=== PATIENT | female | born 1955 | race Caucasian/White ===

== ENCOUNTER → 2018-06-10 16:24 | Outpatient (CLI) | payer BC, SELFPAY ==
--- NOTE | 2018-06-10 16:30 | BI_ITS ---
MAMMOGRAPHY - BILATERAL SCREENING REASON FOR EXAM: Female, 63 years old. Routine annual screening examination. PERTINENT HISTORY: Non-contributory. Remote right stereotactic breast biopsies. TECHNIQUE: Digital bilateral breast jennifer (3D mammographic acquisition) in the CC and MLO projections. 2-D mediolateral oblique (MLO) and craniocaudad (CC) views of both breasts were obtained. CAD: Full Field Digital Mammography with Computer Added Detection was performed. COMPARISON: Comparison is made with prior study dated April 23, 2017 and April 16, 2016. FINDINGS: Breast Composition: There are scattered areas of fibroglandular density. Stable 8.5 mm well-defined nodular density in the deep mid medial aspect of the right breast. A tissue clip marker is seen within the nodular density in the central slightly lateral portion of the right breast. No other significant abnormalities are identified. There has been no significant change since the prior study. BI/SCREENING MAMM (CAD), BILAT IMPRESSION: Stable bilateral screening mammogram. Ultrasound of the 8.5 mm nodule in the deep mid medial portion of the right breast is recommended. ASSESSMENT CATEGORY: BIRADS Category 0: Incomplete. Need additional imaging evaluation. A letter regarding these results will be sent to the patient by the facility within 30 days. Approximately 10% of breast cancers are not detected by mammography. A normal mammogram should not delay biopsy of a clinically suspicious abnormality. [id number] Electronically Signed: Sb Medina MD at 8:42 EDT Tel [phone], Service support ,
== END ==
PROVIDERS: Family Provider Internal Medicine; PCP Internal Medicine; Visit Provider Internal Medicine
DX: Z12.31 Encounter for screening mammogram for malignant neoplasm of breast (principal); N63.10 Unspecified lump in the right breast, unspecified quadrant
CPT/HCPCS: 77063; 77067

== ENCOUNTER → 2018-06-22 12:24 | Outpatient (CLI) | payer BC, SELFPAY ==
--- NOTE | 2018-06-22 12:29 | US_ITS ---
STUDY: ULTRASOUND BREAST - RIGHT REASON FOR EXAM: Female, 63 years old. Abnormal screening mammogram. TECHNIQUE: Axial and longitudinal images of the RIGHT breast were performed with a high resolution ultrasound transducer. COMPARISON: Comparison is made with prior mammogram dated June 10, 2018. FINDINGS: RIGHT Breast: There is evidence of a dilated subareolar ducts. No solid or cystic mass lesion is seen. Routine mammographic follow-up is recommended. US/Breast Limited Unilateral IMPRESSION: Dilated subareolar ducts. ASSESSMENT CATEGORY: BIRADS Category 2: Benign. A letter regarding these results will be sent to the patient by the facility within 30 days. Electronically Signed: Sb Medina MD at 13:54 EDT Tel [phone], Service support ,
== END ==
PROVIDERS: Family Provider Internal Medicine; PCP Internal Medicine; Visit Provider Internal Medicine
DX: R92.8 Other abnormal and inconclusive findings on diagnostic imaging of breast (principal)
CPT/HCPCS: 76642

== ENCOUNTER 2018-06-27 17:07 | Inpatient (IN) | payer BC, SELFPAY ==
[2018-06-27 17:08] VITALS: BP 139/56; PULSE 81; RESP 24; TEMP 36; O2SAT 99; BMI 29.6
[2018-06-27 17:41] LABS: Absolute Lymphocyte Count 2.86 X10^3/ul (0.83-4.51); Absolute Neutrophil Count 9.7 X10^3/uL (2.0-7.7); Basophil# 0.03 X10^3/uL; Basophil% 0.2 % (0-1); Eosinophil# 0.16 X10^3/uL; Eosinophils% 1.2 % (0-5); Hematocrit 39.4 % (37-47); Hemoglobin 13.1 g/dl (12.0-15.0); Lymphocyte # 2.86 X10^3/ul (4.0); Lymphocyte % 21.4 % (19-41); Mean Corp Hgb Conc 33.2 g/gl (32-36); Mean Corpuscular Volume 90.2 fL (81-99); Monocyte# 0.59 X10^3/uL; Monocyte% 4.4 % (0-10); Neutrophil % 72.4 % (47-70); Platelet Count 240 K/mm3 (150-450); RBC Distribution Width CV 14.3 % (11.6-14.6); Red Blood Count 4.37 M/mm3 (4.2-5.4); White Blood Count 13.4 K/mm3 (4.4-11.0)
[2018-06-27 17:42] LABS: POSITIVE COUNT NO; POSITIVE DIFFERENTIAL NO; POSITIVE MORPHOLOGY NO
[2018-06-27 17:51] LABS: Anion Gap 11 (5-15); BUN 22 mg/dL (7-18); BUN/Creat Ratio 20.8 RATIO (10-20); Calcium,Total 9.3 mg/dL (8.5-10.1); Chloride 106 mmol/L (98-107); Creatinine, Serum 1.06 mg/dL (0.55-1.02); EST Glomerular Filtration Rate 55 mL/min (>60); Est Glom Filt Rate - Afr Amer 67 mL/min (>60); Estimated Creatinine Clearance 54.09 ml/min; Glucose 174 mg/dL (74-106); Potassium 3.8 mmol/L (3.5-5.1); Sodium Level 143 mmol/L (136-145)
[2018-06-27] MEDS: Morphine 4 MG/ML Syringe IV (17:58)
[2018-06-27] MEDS: 0.9% Normal Saline 1,000 ML 150 ML IV ×2 (17:58→20:58)
[2018-06-27] MEDS: Ondansetron ODT 4 MG Tablet PO (17:58)
[2018-06-27 18:13] LABS: CPK Total, Creatine Kinase 145 U/L (26-192)
--- NOTE | 2018-06-27 18:20 | RAD_ITS ---
STUDY: X-RAY - LEFT FEMUR REASON FOR STUDY: Female, 63 years old. Trauma TECHNIQUE: Radiological exam, femur, minimum 2 views COMPARISON: None. FINDINGS: Normal visualized soft tissue structure. There is no evidence of fracture or dislocation. There are mild degenerative changes of the left knee joint. There is a crescentic calcification adjacent to the medial femoral epicondyle consistent with a David-Stieda calcification. RAD/Femur Min 2 Views IMPRESSION: 1. There is no evidence of left femoral fracture or dislocation. 2. There are degenerative changes of the left knee joint. 3. Crescentic calcification adjacent to the medial femoral epicondyles consistent with a David-Stieda calcification. . Electronically Signed: Roney Garrido MD at 19:10 EDT , Service support ,
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
[2018-06-27 19:35] VITALS: BP 130/77; PULSE 79; RESP 14; O2SAT 98
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
[2018-06-27] MEDS: Ketorolac 30 MG/ML Syringe IV (19:42)
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
[2018-06-27 20:09] VITALS: BMI 30.9
[2018-06-27 20:18] VITALS: BP 145/77; PULSE 89; RESP 20; TEMP 36.4; O2SAT 96
[2018-06-27 20:53] LABS: Anion Gap 10 (5-15); BUN 21 mg/dL (7-18); BUN/Creat Ratio 23.4 RATIO (10-20); Calcium,Total 8.7 mg/dL (8.5-10.1); Chloride 108 mmol/L (98-107); EST Glomerular Filtration Rate 67 mL/min (>60); Est Glom Filt Rate - Afr Amer 81 mL/min (>60); Glucose 137 mg/dL (74-106); Magnesium 1.9 mg/dL (1.6-2.6); Potassium 3.9 mmol/L (3.5-5.1); Sodium Level 144 mmol/L (136-145)
[2018-06-27 20:54] LABS: CPK Total, Creatine Kinase 212 U/L (26-192)
[2018-06-27] MEDS: 0.9% Normal Saline 1,000 ML 999 ML IV (20:57)
[2018-06-27 21:00] LABS: Hemoglobin A1c 5.8 % (4.2-6.3)
[2018-06-28] VITALS (28 sets, daily range): BP systolic 98–134; BP diastolic 57–86; PULSE 71–87; RESP 14–29; TEMP 36.1–36.8; O2SAT 91–100
[2018-06-28 00:43] LABS: Anion Gap 6 (5-15); BUN 18 mg/dL (7-18); BUN/Creat Ratio 20.8 RATIO (10-20); Calcium,Total 8.2 mg/dL (8.5-10.1); Chloride 110 mmol/L (98-107); Creatinine, Serum 0.86 mg/dL (0.55-1.02); EST Glomerular Filtration Rate 70 mL/min (>60); Est Glom Filt Rate - Afr Amer 85 mL/min (>60); Estimated Creatinine Clearance 66.67 ml/min; Glucose 107 mg/dL (74-106); Potassium 4.3 mmol/L (3.5-5.1); Sodium Level 141 mmol/L (136-145)
--- NOTE | 2018-06-28 02:15 | NURSING ---
Called lab. Order for 0142 CPK has been re entered so they can run results per Dr. Mendez.
[2018-06-28] MEDS: 0.9% Normal Saline 1,000 ML 150 ML IV ×2 (02:23→09:20)
[2018-06-28 02:48] LABS: CPK Total, Creatine Kinase 279 U/L (26-192)
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
[2018-06-28 03:42] LABS: Absolute Lymphocyte Count 4.46 X10^3/ul (0.83-4.51); Absolute Neutrophil Count 5.5 X10^3/uL (2.0-7.7); Basophil# 0.02 X10^3/uL; Basophil% 0.2 % (0-1); Eosinophil# 0.17 X10^3/uL; Eosinophils% 1.5 % (0-5); Hematocrit 32.1 % (37-47); Hemoglobin 10.4 g/dl (12.0-15.0); Lymphocyte # 4.46 X10^3/ul (4.0); Lymphocyte % 40.6 % (19-41); Mean Corp Hgb Conc 32.4 g/gl (32-36); Mean Corpuscular Hgb 29.7 pg (27.0-32.0); Mean Corpuscular Volume 91.7 fL (81-99); Mean Platelet Vol. 11.2 fl (6.2-12.0); Monocyte# 0.87 X10^3/uL; Monocyte% 7.9 % (0-10); Neutrophil # 5.46 X10^3/uL (2.7-7.7); Neutrophil % 49.7 % (47-70); Platelet Count 221 K/mm3 (150-450); RBC Distribution Width CV 14.5 % (11.6-14.6); RBC Distribution Width SD 47.2 fl (35.1-43.9)
[2018-06-28 03:44] LABS: POSITIVE COUNT NO; POSITIVE DIFFERENTIAL NO; POSITIVE MORPHOLOGY NO
--- NOTE | 2018-06-28 03:44 | CCHN_ITS ---
Hospitalist Note PENOLOGY PROFESSOR Called (3:05 am) secondary to patient nearly passing out while in the restroom. She per RN became diaphoretic, pale and very lethargic w/ low blood pressure. She was transitioned from the restroom to the bed. She became more alert. NS 1L wide open initiated. Repeat VS improved, stable BP. LLE now more edematous, remains TTP, not markedly tense with palpation or PROM; however, remains severely TTP, near fluctuant sensation w/ palpation. Dr. Devlin called immediately and updated and requested to evaluate patient. Following discussions she requested CT LLE without contrast which was performed and preliminary upon visualization concerning for bleeding with pending radiology and orthopedic surgery read (Dr. Devlin updated). Repeat labs returned w/ Hgb 13.1-->10.4 w/ require for 2u T+C ordered, coags normal, BMP w/ K 3.9, glucose 129, TCK 279, trop < 0.015. Patient following CT LLE transitioned to ICU for close monitoring pending primary service assessment for possible surgical intervention needs. Dr. Perez ICU updated about patient transition to the ICU and current status. Physical Examination: General: awake, alert, oriented to current events, place, date and cooperative, diaphoretic and pale, seated upright initially in wheelchair and then transitioned to the bed in no apparent distress. Skin: pale color initially, improved, mildly increased bruising to BL upper anterior thigh region; however, LLE now more edematous, remains TTP, not markedly tense with palpation or PROM; however, remains severely TTP, near fluctuant sensation w/ palpation HEENT: AT/NC, mildly dry MM. Lungs: CTA bilaterally, moderate effort, mild decrease BL bases, no rales, ronchi or wheezing. Heart: Regular rate and rhythm; no gallop, rub audible. Abdomen: soft, NTTP, ND. Extremities: no cyanosis, clubbing, see skin, distal pulses remain intact. Neurological: awake, alert, oriented to current events, place, date and cooperative, seated upright initially in wheelchair and then transitioned to the bed in no apparent distress; cognitive function improved, more baseline intact; pupils equally reactive to light and accomodation; cranial nerves II- XII grossly normal, moving all 4 extremities but still severely limited secondary to LLE pain, recent near syncopal event/vasovagal. Psychiatric: affect appears fatigued, flat, no acute evidence of depressive or anxiety feelings. Prolonged Care Timeline: Additional Care above initial evaluation time 95 minutes Codin and [id number] x 1 Code Visit Procedures: Other Procedure - See Report - [id number] and [id number] x 1
[2018-06-28 03:45] LABS: International Normalized Ratio 1.1; Prothrombin Time (Protime)PT. 14.4 SECONDS (11.7-14.9)
[2018-06-28 03:51] LABS: Bedside Glucose 138 mg/dL (70-110)
[2018-06-28 03:52] LABS: Anion Gap 11 (5-15); BUN 18 mg/dL (7-18); BUN/Creat Ratio 20.5 RATIO (10-20); Chloride 110 mmol/L (98-107); Creatinine, Serum 0.88 mg/dL (0.55-1.02); EST Glomerular Filtration Rate 69 mL/min (>60); Est Glom Filt Rate - Afr Amer 84 mL/min (>60); Estimated Creatinine Clearance 65.15 ml/min; Glucose 129 mg/dL (74-106); Potassium 3.9 mmol/L (3.5-5.1); Sodium Level 143 mmol/L (136-145)
--- NOTE | 2018-06-28 04:36 | PCM.HOSP.N ---
Hospitalist Note SURVEY SUPERVISOR Called (3:05 am) secondary to patient nearly passing out while in the restroom. She per RN became diaphoretic, pale and very lethargic w/ low blood pressure. She was transitioned from the restroom to the bed. She became more alert. NS 1L wide open initiated. Repeat VS improved, stable BP. LLE now more edematous, remains TTP, not markedly tense with palpation or PROM; however, remains severely TTP, near fluctuant sensation w/ palpation. Dr. Devlin called immediately and updated and requested to evaluate patient. Following discussions she requested CT LLE without contrast which was performed and preliminary upon visualization concerning for bleeding with pending radiology and orthopedic surgery read (Dr. Devlin updated). Repeat labs returned w/ Hgb 13.1-->10.4 w/ require for 2u T+C ordered, coags normal, BMP w/ K 3.9, glucose 129, TCK 279, trop < 0.015. Patient following CT LLE transitioned to ICU for close monitoring pending primary service assessment for possible surgical intervention needs. Dr. Perez ICU updated about patient transition to the ICU and current status. Physical Examination: General: awake, alert, oriented to current events, place, date and cooperative, diaphoretic and pale, seated upright initially in wheelchair and then transitioned to the bed in no apparent distress. Skin: pale color initially, improved, mildly increased bruising to BL upper anterior thigh region; however, LLE now more edematous, remains TTP, not markedly tense with palpation or PROM; however, remains severely TTP, near fluctuant sensation w/ palpation HEENT: AT/NC, mildly dry MM. Lungs: CTA bilaterally, moderate effort, mild decrease BL bases, no rales, ronchi or wheezing. Heart: Regular rate and rhythm; no gallop, rub audible. Abdomen: soft, NTTP, ND. Extremities: no cyanosis, clubbing, see skin, distal pulses remain intact. Neurological: awake, alert, oriented to current events, place, date and cooperative, seated upright initially in wheelchair and then transitioned to the bed in no apparent distress; cognitive function improved, more baseline intact; pupils equally reactive to light and accomodation; cranial nerves II-XII grossly normal, moving all 4 extremities but still severely limited secondary to LLE pain, recent near syncopal event/vasovagal. Psychiatric: affect appears fatigued, flat, no acute evidence of depressive or anxiety feelings. Prolonged Care Timeline: Additional Care above initial evaluation time 95 minutes Codin and [id number] x 1 Code Visit Procedures: Other Procedure - See Report - [id number] and [id number] x 1
--- NOTE | 2018-06-28 04:42 | NURSING ---
Addendum entered by Ina Montez 06/28/18 04:48: See [facility] PRESIDENT documentation Original Note: Addendum entered by Ina Montez 06/28/18 04:42: Initially occurred at 0305 at 0309 Code team arrived, VS obtained, 78/44, hr 72, RR 14, SpO2 91% RA. Pt alert but still pale and diaphoretic, then appeared to vasovagal again. Pulse present. Ice to neck, waking up 0313 BGT 138 0315 back to bed via wc, pt alert, states feel better [address] per nursing supervisor polishing [employer] operations engineer in charge nurse, then will go to ICU. Original Note: Walked pt to bathroom after completing vs and neuro checks of left LE, edema increased, firmer to touch. Pt c/o increased pain upon standing, states was only a 2/10 in bed but when up felt severe. walked to bathroom with sba. Voided and upon standing pt c/o increased pain, became clammy, cool, stopped talking. Assisted pt back to seated position on toilet. Pt became diaphoretic, pale, and eyes rolled back, became unresponsive. Called for assistance, applied cold rag to forehead, pt moaning a little but not arousable, did not appear to be breathing, called code blue. Within a few seconds pt waking up.
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
[2018-06-28 06:21] LABS: M R Staph aureus DNA By PCR Negative (Negative); Probe Check PASS; Specimen Processing Control PASS
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
[2018-06-28 07:21] LABS: Anion Gap 8 (5-15); BUN 17 mg/dL (7-18); Calcium,Total 7.7 mg/dL (8.5-10.1); Chloride 109 mmol/L (98-107); Creatinine, Serum 0.85 mg/dL (0.55-1.02); EST Glomerular Filtration Rate 71 mL/min (>60); Est Glom Filt Rate - Afr Amer 86 mL/min (>60); Estimated Creatinine Clearance 67.45 ml/min; Glucose 121 mg/dL (74-106); Sodium Level 143 mmol/L (136-145)
[2018-06-28 08:05] LABS: Absolute Lymphocyte Count 1.97 X10^3/ul (0.83-4.51); Absolute Neutrophil Count 4.3 X10^3/uL (2.0-7.7); Basophil# 0.02 X10^3/uL; Basophil% 0.3 % (0-1); Eosinophil# 0.07 X10^3/uL; Hematocrit 30.4 % (37-47); Hemoglobin 9.7 g/dl (12.0-15.0); Lymphocyte # 1.97 X10^3/ul (4.0); Lymphocyte % 29.1 % (19-41); Mean Corp Hgb Conc 31.9 g/gl (32-36); Mean Corpuscular Volume 90.7 fL (81-99); Mean Platelet Vol. 11.2 fl (6.2-12.0); Monocyte# 0.39 X10^3/uL; Monocyte% 5.8 % (0-10); Neutrophil # 4.31 X10^3/uL (2.7-7.7); Neutrophil % 63.8 % (47-70); POSITIVE COUNT NO; POSITIVE DIFFERENTIAL NO; POSITIVE MORPHOLOGY NO; Platelet Count 197 K/mm3 (150-450); RBC Distribution Width CV 14.5 % (11.6-14.6); RBC Distribution Width SD 48.3 fl (35.1-43.9); Red Blood Count 3.35 M/mm3 (4.2-5.4); White Blood Count 6.8 K/mm3 (4.4-11.0)
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
[2018-06-28] MEDS: Vitamin B Comp W-C Capsule 1 CAP PO (09:20)
[2018-06-28 11:02] LABS: Hematocrit 28.1 % (37-47)
[2018-06-28 15:00] LABS: Hematocrit 29.1 % (37-47); Hemoglobin 9.5 g/dl (12.0-15.0)
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
[2018-06-29] VITALS (10 sets, daily range): BP systolic 102–129; BP diastolic 64–73; PULSE 64–93; RESP 14–22; TEMP 36.6–37.1; O2SAT 92–99
--- NOTE | 2018-06-29 | NURSING ---
report called to ALYSSA Eckert RN at this time.
[2018-06-29 05:09] LABS: Absolute Lymphocyte Count 2.86 X10^3/ul (0.83-4.51); Absolute Neutrophil Count 3.5 X10^3/uL (2.0-7.7); Basophil# 0.02 X10^3/uL; Basophil% 0.3 % (0-1); Eosinophil# 0.19 X10^3/uL; Eosinophils% 2.7 % (0-5); Hematocrit 26.6 % (37-47); Hemoglobin 8.4 g/dl (12.0-15.0); Lymphocyte # 2.86 X10^3/ul (4.0); Lymphocyte % 40.2 % (19-41); Mean Corp Hgb Conc 31.6 g/gl (32-36); Mean Corpuscular Volume 91.7 fL (81-99); Mean Platelet Vol. 10.8 fl (6.2-12.0); Monocyte# 0.53 X10^3/uL; Monocyte% 7.4 % (0-10); Neutrophil # 3.51 X10^3/uL (2.7-7.7); Neutrophil % 49.3 % (47-70); Platelet Count 182 K/mm3 (150-450); RBC Distribution Width CV 14.2 % (11.6-14.6); RBC Distribution Width SD 46.2 fl (35.1-43.9); White Blood Count 7.1 K/mm3 (4.4-11.0)
[2018-06-29 05:37] LABS: POSITIVE COUNT NO; POSITIVE DIFFERENTIAL NO; POSITIVE MORPHOLOGY NO
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
[2018-06-29] MEDS: Acetaminophen 325 MG Tablet 650 MG PO (08:54)
[2018-06-29] MEDS: Vitamin B Comp W-C Capsule 1 CAP PO (08:55)
--- NOTE | 2018-06-29 09:30 | CASEMGMT ---
Face to Face with patient for initial transition planning/care coordination assessment. JAXON DE LEON introduced self and role at [facility], pt voices understanding and consents to assessment at this time. Pt is sitting up in chair in no distress at this time. Pt is A/O x4 at this time and answers all questions appropriately at this time. Care providers, pharmacy, and demographics verified. See attached link. Pt voices no further concerns/needs at this time. Advised pt to ask for CM if any further questions/concerns/needs arise, voices understanding. PLAN: [place] JAXON DE LEON
--- NOTE | 2018-06-29 11:28 | PCM.DC ---
- Discharge Diagnoses Current Active Problems: Current Active and Chronic Problems (Last Updated 03/06/18 @ 16:06 by Hilda Link) HLD (hyperlipidemia) (Chronic) Crushing injury of left lower extremity (Acute) Overweight (BMI 25.0-29.9) (Chronic) Hyperglycemia (Acute) You will use the following diet at home:: No restrictions Your food should be the consistency of: Regular Your liquids should be the consistency of: Regular/Thin Discharge Activity: Return to Normal Activity, Use Walker Weight Bearing Status: Weight bearing as tolerated Allergies/Adverse Reactions: Allergies amoxicillin [From Augmentin] Adverse Reaction (Mild, Verified 03/06/18 16:15) vomiting clavulanic acid [From Augmentin] Adverse Reaction (Mild, Verified 03/06/18 16:15) vomiting Sulfa (Sulfonamide Antibiotics) Adverse Reaction (Mild, Verified 03/06/18 16:15) vomiting black pepper Adverse Reaction (Verified 06/27/18 20:23) kuo lips orange dye Allergy (Mild, Uncoded 06/27/18 20:22) SOB, hives dairy Adverse Reaction (Uncoded 06/27/18 20:23) lactose intolerance Medications to take at Discharge multivitamin tablet 1 tab PO QDAY 03/06/18 Primary Care Physician: Bettye Le MD [STAFF PHYSICIAN] - Please follow up with your Primary Care Physician in: in 2 weeks Test Results: Test results from this visit will be discussed in further detail at your follow-up appointment, if applicable. Please Follow Up With: Dayan Devlin DO When: this -office will contact
--- NOTE | 2018-06-29 11:32 | DCINST_ITS ---
- Discharge Diagnoses Current Active Problems: Current Active and Chronic Problems (Last Updated 03/06/18 @ 16:06 by Hilda Link) HLD (hyperlipidemia) (Chronic) Crushing injury of left lower extremity (Acute) Overweight (BMI 25.0-29.9) (Chronic) Hyperglycemia (Acute) You will use the following diet at home:: No restrictions Your food should be the consistency of: Regular Your liquids should be the consistency of: Regular/Thin Discharge Activity: Return to Normal Activity, Use Walker Weight Bearing Status: Weight bearing as tolerated Allergies/Adverse Reactions: Allergies amoxicillin [From Augmentin] Adverse Reaction (Mild, Verified 03/06/18 16:15) vomiting clavulanic acid [From Augmentin] Adverse Reaction (Mild, Verified 03/06/18 16:15 ) vomiting Sulfa (Sulfonamide Antibiotics) Adverse Reaction (Mild, Verified 03/06/18 16:15) vomiting black pepper Adverse Reaction (Verified 06/27/18 20:23) kuo lips orange dye Allergy (Mild, Uncoded 06/27/18 20:22) SOB, hives dairy Adverse Reaction (Uncoded 06/27/18 20:23) lactose intolerance Medications to take at Discharge multivitamin tablet 1 tab PO QDAY 03/06/18 Primary Care Physician: Bettye Le MD [STAFF PHYSICIAN] - Please follow up with your Primary Care Physician in: in 2 weeks Test Results: Test results from this visit will be discussed in further detail at your follow- up appointment, if applicable. Please Follow Up With: Dayan Devlin DO When: this -office will contact
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
== END 2018-06-29 15:45 | disposition home or self-care (01) | DRG 914 ==
LOC: ED 18:55 → MS3 19:46 → ICU 06-28 03:52 → PCU 06-29 00:41
PROVIDERS: Family Medicine; Internal Medicine Critical Care Medicine; Admitting Provider Orthopaedic Surgery; Emergency Provider Emergency Medicine; Family Provider Internal Medicine; PCP Internal Medicine; Visit Provider Hospitalist
DX: S77.12XA Crushing injury of left thigh, initial encounter (principal); D62 Acute posthemorrhagic anemia; S70.12XA Contusion of left thigh, initial encounter; W23.0XXA Caught, crushed, jammed, or pinched between moving objects, initial encounter; R73.9 Hyperglycemia, unspecified; E78.5 Hyperlipidemia, unspecified; Z68.30 Body mass index [BMI] 30.0-30.9, adult; E66.3 Overweight
CPT/HCPCS: 36415; 73552; 73700; 80048; 82550; 82962; 83036; 83735; 84484; 85014; 85018; 85025; 85610; 86850; 86900; 86920; 87641; 97162; 97166; 97535; 99282; J7030; J2405

== ENCOUNTER → 2018-07-02 10:19 | Outpatient (CLI) | payer BC, SELFPAY ==
[2018-07-02 11:09] LABS: Absolute Lymphocyte Count 2.11 X10^3/ul (0.83-4.51); Absolute Neutrophil Count 5.2 X10^3/uL (2.0-7.7); Basophil# 0.04 X10^3/uL; Basophil% 0.5 % (0-1); Eosinophil# 0.17 X10^3/uL; Eosinophils% 2.1 % (0-5); Hematocrit 29.8 % (37-47); Hemoglobin 9.5 g/dl (12.0-15.0); Lymphocyte # 2.11 X10^3/ul (4.0); Lymphocyte % 26.3 % (19-41); Mean Corp Hgb Conc 31.9 g/gl (32-36); Mean Corpuscular Hgb 29.1 pg (27.0-32.0); Mean Corpuscular Volume 91.4 fL (81-99); Mean Platelet Vol. 11.1 fl (6.2-12.0); Monocyte# 0.52 X10^3/uL; Monocyte% 6.5 % (0-10); Neutrophil # 5.15 X10^3/uL (2.7-7.7); Neutrophil % 64.2 % (47-70); Platelet Count 308 K/mm3 (150-450); RBC Distribution Width CV 14.5 % (11.6-14.6); RBC Distribution Width SD 46.1 fl (35.1-43.9); Red Blood Count 3.26 M/mm3 (4.2-5.4)
[2018-07-02 11:14] LABS: POSITIVE COUNT NO; POSITIVE DIFFERENTIAL NO; POSITIVE MORPHOLOGY NO
[2018-07-02 11:44] LABS: ALB/GLOB Ratio 0.9 RATIO (0.9-2.4); AST(SGOT) 32 U/L (15-37); Alanine Aminotransfer ALT/SGPT 35 U/L (13-56); Albumin, Serum 3.6 g/dL (3.2-5.0); Alkaline Phosphatase 83 U/L (45-117); Anion Gap 10 (5-15); BUN 18 mg/dL (7-18); BUN/Creat Ratio 20.8 RATIO (10-20); Calcium,Total 8.8 mg/dL (8.5-10.1); Chloride 104 mmol/L (98-107); Creatinine, Serum 0.87 mg/dL (0.55-1.02); EST Glomerular Filtration Rate 70 mL/min (>60); Est Glom Filt Rate - Afr Amer 85 mL/min (>60); Globulin 3.8 g/dL (2.2-4.2); Glucose 119 mg/dL (74-106); Potassium 3.9 mmol/L (3.5-5.1); Protein, Total 7.4 g/dL (6.4-8.2); Sodium Level 138 mmol/L (136-145)
== END ==
PROVIDERS: Physician Assistant; Family Provider Internal Medicine; PCP Internal Medicine; Visit Provider Orthopaedic Surgery
DX: D64.9 Anemia, unspecified (principal); R73.09 Other abnormal glucose
CPT/HCPCS: 36415; 80053; 85025

== ENCOUNTER → 2018-07-29 10:40 | Outpatient (CLI) | payer BC, SELFPAY ==
[2018-07-29 11:31] LABS: Hematocrit 39.1 % (37-47); Hemoglobin 12.5 g/dl (12.0-15.0); Mean Corpuscular Hgb 29.1 pg (27.0-32.0); Mean Corpuscular Volume 91.1 fL (81-99); Mean Platelet Vol. 11.1 fl (6.2-12.0); Platelet Count 335 K/mm3 (150-450); RBC Distribution Width SD 49.7 fl (35.1-43.9); Red Blood Count 4.29 M/mm3 (4.2-5.4); White Blood Count 6.7 K/mm3 (4.4-11.0)
[2018-07-29 11:33] LABS: Scan Indicated on CBC? Y/N NO
== END ==
PROVIDERS: Family Provider Internal Medicine; PCP Internal Medicine; Visit Provider Physician Assistant
DX: D64.9 Anemia, unspecified (principal)
CPT/HCPCS: 36415; 85027

== ENCOUNTER 2018-08-27 13:00 | Outpatient (RCR) | payer BC, SELFPAY ==
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
--- NOTE | 2019-01-21 15:11 | HP.PTDCSUM ---
HP - PT D/C Summary It has been my pleasure to treat KEYA SHEIKH under orders from Dayan Devlin DO, for the diagnosis of LLE hematoma, edema control for a total of 12 visit(s). Discharge Date: 08/27/18 Please see the following information for a summary of their discharge status. - Subjective Subjective: Pt. has made some gains in edema, is not less brawny feeling and has decreased in girth. Pt. is back to full mobility and work, but is not back to playing recreational sports. - Pain L LE Pain Intensity (Out of 10): 0 - Overall Improvement % Improvement: 50 - Objective Objective/Function: Pt. tolerated all PT without adverse reaction. Pt. has been making slow porgress, but is progressing. Pt. reports being ~50% better overall. Pt. plans to get second opinion on her thigh. Pt. will be DC from PT at this point in time. - Goals Goal 1:: Pt. to be I with HEP. Goal Progress: Goal Met Goal 2:: Pt. to have decreased L thigh edema by 50% throughout indicating incfreased healing process. Goal Progress: Progressing Goal 3:: Pt. to ambulate with normal pattern unlimited distances without increase in symptoms. Goal Progress: Goal Met Goal 4:: Pt. to have increased LLE strength by 1/2 grade allowing for incrased stability with all functional mobility. Goal Progress: Progressing - Plan Plan: Pt. to be DC from PT - D/C Information Discharge Comments: Pt. was treated wtih US, vaso, soft tissue mobilization. Pt. made some gains with reduction in tissue girth and reduction in brawny tissu. Pt. was still continuing to use compression garments. Pt. was going to get a second opinion on her thigh adn to continue exercises rafat own. Pt. glenn be DC from Pt at this point in time. If there are questions or concerns regarding this patient's physical therapy, please feel free to call me at [phone]. Thank you for the referral of this patient. Sincerely, RODOLFO MastersT
== END 2018-08-27 19:00 | disposition home or self-care (01) ==
LOC: PT 13:00
PROVIDERS: Family Provider Internal Medicine; PCP Internal Medicine; Visit Provider Orthopaedic Surgery
DX: S70.12XD Contusion of left thigh, subsequent encounter (principal)
CPT/HCPCS: 97016; 97035; 97110; 97140; 97161

== ENCOUNTER → 2018-09-01 16:23 | Outpatient (CLI) | payer BC, SELFPAY ==
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
== END ==
PROVIDERS: Family Provider Internal Medicine; PCP Internal Medicine; Referring Provider Physician Assistant; Visit Provider Physician Assistant
DX: S87.82XA Crushing injury of left lower leg, initial encounter (principal); X58.XXXA Exposure to other specified factors, initial encounter
CPT/HCPCS: 73718

== ENCOUNTER → 2018-11-06 16:11 | Outpatient (CLI) | payer BC, SELFPAY ==
[2018-09-07 15:18] VITALS: BMI 30.2
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
--- OUTSIDE RECORDS SUMMARY | 2019-02-10 07:11 | XMS RPT_ITS ---
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 GIVENUNK [place] Insurance:SELF PAY [facility] Number: Effective Repository Date:2018-09-04 09/01/2018 KEYA A Primary KEYA A [place] Insurance:ANTHEMPolic [place] Community [id number] y Number: AGUILARDOB: Hospital [id number] Repository [place]:7225-28-28HF [address] [address]Lsh: ([phone]) [phone], [place] [phone] () 11085FZ: 09/01/2018 Secondary NOT GIVENUNK [place] Insurance:SELF PAY [facility] Number: Effective Repository Date:2018-08-18 08/27/2018 KEYA A Primary KEYA A [place] Insurance:ANTHEMPolic [place] Community [id number] y Number: VEEESDOB: Hospital [id number] Repository [place]:1513-18-87NG [address] [address]Onl: [phone]) [phone], [place] [phone] () 94161RY: 08/27/2018 Secondary NOT GIVENUNK [place] Insurance:SELF PAY [facility] Number: Effective Repository Date:2018-07-02 07/30/2018 KEYA A Primary KEYA A [place] Insurance:ANTHEMPolic [place] Community [id number] y Number: AGUILARDOB: [id number] Repository [place] Date:2166-40-62OV [address] [address]Ukz: [phone]) [id number], [place] [phone] () 08640MW: 07/30/2018 Secondary NOT GIVENUNK [place] Insurance:SELF PAY [facility] Number: Effective Repository Date:2018-07-30 07/29/2018 KEYA A Primary KEYA A [place] Insurance:ANTHEMPolic [place] Community [id number] y Number: AGUILARDOB: [facility] [id number] Repository [place] Date:4181-69-54CS [address] [address]Urz: [phone]) [phone], [place] [phone] () 42140AY: 07/29/2018 Secondary NOT GIVENUNK [place] Insurance:SELF PAY [facility] Number: Effective Repository Date:2018-07-29 07/02/2018 KEYA A Primary KEYA A [place] Insurance:ANTHEMPolic [place] Community [id number] y Number: AGUILARDOB: [facility] [id number] Repository [place]:1608-32-51YW [address] [address]Ycx: ([phone]) [id number] [place] [phone] () 99180ES: 07/02/2018 Secondary NOT GIVENUNK [place] Insurance:SELF PAY Community [facility] Number: Effective Repository Date:2018-07-02 07/02/2018 KEYA A Primary KEYA A [place] Insurance:ANTHEMPolic [place] Community [id number] y Number: AGUILARDOB: [facility] [id number] Repository [facility] Date:4114-19-20RM [address] [address]Vpf: [phone]) [phone], [place] [phone] () 50475WJ: 07/02/2018 Secondary NOT GIVENUNK [place] Insurance:SELF PAY Community [facility] Number: Effective Repository Date:2018-07-02 06/28/2018 KEYA A Primary KEYA A [place] Insurance:ANTHEMPolic [place] Community [id number] y Number: AGUILARDOB: [facility] [id number] Repository [facility] Date:5723-54-57MP [address] [address]Avo: [phone]) [phone], [place] [phone] () 89138WH: 06/28/2018 Secondary NOT GIVENUNK [place] Insurance:SELF PAY Community [facility] Number: Effective Repository Date:2018-06-28 06/27/2018 KEYA A Primary KEYA A [place] Insurance:ANTHEMPolic [place] Community [id number] y Number: AGUILARDOB: [facility] [id number] Repository [facility] Date:6020-84-33FI [address] [address]Mwx: ([phone]) [phone], [place] [phone] () 02835HH: 06/27/2018 Secondary NOT GIVENUNK [place] Insurance:SELF PAY Community [facility] Number: Effective Repository Date:2018-06-27 06/27/2018 KEYA A Primary KEYA A [place] Insurance:ANTHEMPolic [place] Community [id number] y Number: AGUILARDOB: [facility] [id number] Repository [facility] [place] Date:3916-84-59WN [address] [address]Iwt: ([phone]) [id number], [place] [phone] () 12493VJ: 06/27/2018 Secondary NOT GIVENUNK [place] Insurance:SELF PAY [facility] Number: Effective Repository Date:2018-06-27 06/27/2018 KEYA A Primary KEYA A [place] Insurance:[employer]HE[employer]olic [place] Community [id number] y Number: AGUILARDOB: [facility] [id number] Repository [place]:9289-10-35FU [address] [address]Ttq: [phone]) [phone] [place] [phone] () 98690SF: 06/27/2018 Secondary NOT GIVENUNK [place] Insurance:SELF PAY Community [facility] Number: Effective Repository Date:2018-06-27 06/27/2018 KEYA A Primary KEYA A [place] Insurance:[place]HEMPolic [place] Community [id number] y Number: AGUILARDOB: [facility] [id number] Repository [place]:4887-81-13YO [address] [address]Wce: ([phone]) [id number] [place] [phone] () 01590TN: 06/27/2018 Secondary NOT GIVENUNK [place] Insurance:SELF PAY Community [facility] Number: Effective Repository Date:2018-06-27 06/27/2018 KEYA A Primary KEYA A [place] Insurance:[place]HE[employer]olic [place] Community [id number] y Number: AGUILARDOB: [facility] [id number] Repository [place]:3918-27-40VP [address] [address]Anv: [phone] [id number] [place] [phone] () 37793BR: 06/27/2018 Secondary NOT GIVENUNK [place] Insurance:SELF PAY Community [facility] Number: Effective Repository Date:2018-06-27 06/27/2018 KEYA A Primary KEYA A [place] Insurance:ANTHEMPolic [place] Community [id number] y Number: AGUILARDOB: [facility] [id number] Repository [place]:2512-66-24HL [address] [address]Hbg: [phone], [place] [phone] () 49101CS: 06/27/2018 Secondary NOT GIVENUNK [place] Insurance:SELF PAY Community [facility] Number: Effective Repository Date:2018-06-27 06/22/2018 KEYA A Primary KEYA A [place] Insurance:ANTHEMPolic [place] Community [id number] y Number: VEEESDOB: Hospital [id number] Repository [place]:0139-99-40DL [address] [address]Yxx: [phone]) [id number], [place] [phone] () 53817NG: 06/22/2018 Secondary NOT GIVENUNK [place] Insurance:SELF PAY Community [facility] Number: Effective Repository Date:2018-06-11 06/10/2018 KEYA A Primary KEYA A [place] Insurance:ANTHEMPolic [place] Community [id number] y Number: VEEESDOB: Hospital [id number] Repository [place]:8573-91-48XT [address] [address]Iid: [phone], [place] [phone] () 79782YZ: 06/10/2018 Secondary NOT GIVENUNK [place] Insurance:SELF PAY Community [facility] Number: Effective Repository Date:2018-05-25 03/06/2018 KEYA A Primary KEYA A [place] Insurance:[employer]HEMPolic [place] Community [id number] y Number: VEEESDOB: Hospital [id number] Repository [place]:0396-15-06KO [address] [address]Ppu: [phone], [place] [phone] () 99953EC: 03/06/2018 Secondary NOT GIVENUNK [place] Insurance:SELF PAY [facility] Number: Effective Repository Date:2018-03-05
== END ==
PROVIDERS: Family Provider Internal Medicine; PCP Internal Medicine
DX: T14.8XXA Other injury of unspecified body region, initial encounter (principal); X58.XXXA Exposure to other specified factors, initial encounter
CPT/HCPCS: 73718

== ENCOUNTER → 2019-04-28 15:43 | Outpatient (CLI) | payer BC, SELFPAY ==
--- NOTE | 2019-04-28 15:51 | MRI_ITS ---
HISTORY: LT THIGH RESOLVING FARRAH LESIONrecheck, occassional pain , still has palpable lump lateral thigh, 06/2018 EXAMINATION: MR LE Non Joint W/O Contrast TECHNIQUE: Multiplanar and multisequence MR images of the left thigh IV Contrast dosage and agent: None COMPARISON: November 06, 2018 FINDINGS: Within the subcutaneous fat of the proximal left thigh, abutting adjacent to the vastus lateralis muscle, there is a fluid collection. Within the fluid collection there is abnormal tissue. The extent of the fluid at the junction of the subcutaneous fat, and the superficial myofascial layer of the left vastus lateralis muscle measures 17 x 6 x 1.7 cm. By my measurements of the previous study from November 06, 2018, that compared to 20 x 6 x 1.6 cm. Accounting for differences in positioning, slice acquisition, and cursor placement, I do not believe it is significantly different. Within the fluid collection there is some tissue that is of mixed signal intensity, but mostly hypointense on T1 fat-saturated series, and hyperintense to muscle, but hypointense to fat on T1-weighted series. The underlying muscle is normal. Bony alignment is normal. Marrow signal is normal. The uterus contains a lesion likely representing a uterine leiomyoma. The urinary bladder is decompressed. No adenopathy of the lymph nodes are present within the inguinal region. Minimal induration within the subcutaneous fat anterior to the thigh, superficial to the fluid collection. 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 The size of the fluid collection is similar. The size of the tissue within it, probably perhaps hematoma is similar. The size of the lymph nodes within the left inguinal region are similar. at 0341 Reported and signed by: Alexi Morales MD Electronically Signed: Alexi Morales MD at 3:40 EDT Tel , Service support ,
== END ==
PROVIDERS: Family Provider Internal Medicine; PCP Internal Medicine
DX: R22.42 Localized swelling, mass and lump, left lower limb (principal)
CPT/HCPCS: 73718

== ENCOUNTER → 2019-06-11 | Outpatient (CLI) | payer BC, SELFPAY ==
[2018-09-07 15:18] VITALS: BMI 30.2
--- NOTE | 2019-06-11 15:46 | BI_ITS ---
MAMMOGRAPHY - BILATERAL SCREENING 3-D TOMOSYNTHESIS REASON FOR EXAM: Female, 64 years old. Bilateral Screening 3-D tomosynthesis PERTINENT HISTORY: No significant family history. Previous biopsies TECHNIQUE: 2-D mammograms and 3-D Tomosynthesis of the breast (s) were performed. CAD was performed. COMPARISON: FINDINGS: The breast composition is heterogeneously dense that can obscure small breast masses. Scattered benign calcifications are seen. No dense spiculated masses or suspicious microcalcifications are identified. No architectural distortion is identified. There is no skin thickening or retraction. Stable 8.5 mm nodular density in the central right breast near the tissue clip marker. There has been no significant change since the prior study. BI/SCREEN MAMM (CAD) W/DUSTIN BILAT IMPRESSION: No mammographic signs of malignancy. Routine yearly mammograms recommended. ASSESSMENT CATEGORY: BIRADS Category 2: Benign. A letter regarding these results will be sent to the patient by the facility within 30 days. FOLLOW UP RECOMMENDATION: Yearly follow up mammogram recommended. (A) Approximately 10% of breast cancers are not detected by mammography. A normal mammogram should not delay biopsy of a clinically suspicious abnormality. Electronically Signed: Krzysztof Hollins MD at 7:54 EDT , Service support ,
== END | disposition home or self-care (01) ==
LOC: OPBI 15:45
PROVIDERS: Family Provider Internal Medicine; PCP Internal Medicine; Referring Provider Internal Medicine; Visit Provider Internal Medicine
DX: Z12.31 Encounter for screening mammogram for malignant neoplasm of breast (principal)
CPT/HCPCS: 77063; 77067

== ENCOUNTER → 2020-06-23 15:18 | Outpatient (CLI) | payer MEDICARE, OTHER, SELFPAY ==
--- NOTE | 2020-06-23 15:21 | BI_ITS ---
MAMMOGRAPHY - BILATERAL SCREENING REASON FOR EXAM: Female, 64 years old. Routine annual screening examination. PERTINENT HISTORY: Non-contributory. Prior stereotactic breast biopsy of the right breast. TECHNIQUE: Digital bilateral breast dustin (3D mammographic acquisition) in the CC and MLO projections. 2-D mediolateral oblique (MLO) and craniocaudad (CC) views of both breasts were obtained. CAD: Full Field Digital Mammography with Computer Added Detection was performed. COMPARISON: Comparison is made with prior examination dated 06/11/2019 and 04/28/2018. FINDINGS: Breast Composition: The breasts are heterogeneously dense, which may obscure small masses. There are no dominant masses or suspicious calcifications. A tissue clip marker is once again seen in the slightly inferior lateral aspect of the right breast. Stable 8.5 mm well-defined nodule in the central right breast adjacent to the tissue marker. No other significant abnormalities are identified. There has been no significant change since the prior study. BI/SCREEN MAMM (CAD) W/DUSTIN BILAT IMPRESSION: Stable bilateral screening mammogram. Yearly follow-up mammogram recommended. (A) ASSESSMENT CATEGORY: BIRADS Category 2: Benign. A letter regarding these results will be sent to the patient by the facility within 30 days. Approximately 10% of breast cancers are not detected by mammography. A normal mammogram should not delay biopsy of a clinically suspicious abnormality. [id number] Electronically Signed: Sb Medina, at 8:55 EDT , Service support ,
== END ==
PROVIDERS: PCP Internal Medicine; Referring Provider Internal Medicine; Visit Provider Internal Medicine
DX: Z12.31 Encounter for screening mammogram for malignant neoplasm of breast (principal)
CPT/HCPCS: 77063; 77067

== ENCOUNTER 2021-03-15 11:17 | Outpatient (RCR) | payer MEDICARE, OTHER, SELFPAY ==
[2018-09-07 15:18] VITALS: BMI 30.2
== END 2021-05-01 23:59 ==
LOC: IMMUN 11:17
PROVIDERS: PCP Internal Medicine; Referring Provider Family Medicine; Visit Provider Family Medicine
DX: Z23 Encounter for immunization (principal)
CPT/HCPCS: 0001A; 91300

== ENCOUNTER → 2021-06-27 15:53 | Outpatient (CLI) | payer MEDICARE, OTHER, SELFPAY ==
--- NOTE | 2021-06-27 15:58 | BI_ITS ---
MAMMOGRAPHY - BILATERAL SCREENING REASON FOR EXAM: Female, 65 years old. Routine annual screening examination. PERTINENT HISTORY: Screening TECHNIQUE: Digital bilateral breast dustin (3D mammographic acquisition) in the CC and MLO projections. 2-D mediolateral oblique (MLO) and craniocaudad (CC) views of both breasts were obtained. CAD: Full Field Digital Mammography with Computer Added Detection was performed. COMPARISON: Previous mammogram obtained on 06/23/2020 FINDINGS: Breast Composition: Scattered There are no dominant masses or suspicious calcifications. No other significant abnormalities are identified. BI/SCRN MAMM (CAD)W/DUSTIN BILAT IMPRESSION: Stable bilateral screening mammogram. Yearly follow-up mammogram recommended. (A) ASSESSMENT CATEGORY: BIRADS Category 1: Negative. A letter regarding these results will be sent to the patient by the facility within 30 days. BR1 Approximately 10% of breast cancers are not detected by mammography. A normal mammogram should not delay biopsy of a clinically suspicious abnormality. [id number] Electronically Signed: Ross Winter DO at 15:28 EDT Tel , Service support ,
== END ==
PROVIDERS: PCP Internal Medicine; Visit Provider Internal Medicine
DX: Z12.31 Encounter for screening mammogram for malignant neoplasm of breast (principal)
CPT/HCPCS: 77063; 77067

== ENCOUNTER → 2022-07-05 | Outpatient (CLI) | payer MEDICARE, OTHER, SELFPAY ==
--- NOTE | 2022-07-05 15:36 | BI_ITS ---
MAMMOGRAPHY - BILATERAL SCREENING REASON FOR EXAM: Female, 66 years old. Routine annual screening examination. PERTINENT HISTORY: No personal history of breast cancer. Prior right breast stereotactic biopsy. TECHNIQUE: Digital bilateral breast dustin (3D mammographic acquisition) in the CC and MLO projections. 2-D mediolateral oblique (MLO) and craniocaudad (CC) views of both breasts were obtained. CAD: Full Field Digital Mammography with Computer Added Detection was performed. COMPARISON: Comparison mammogram from 06/27/2021, 06/23/2020. FINDINGS: Breast Composition: The breasts are heterogeneously dense, which may obscure small masses. There are no dominant masses or suspicious calcifications. Scattered benign-appearing calcifications. Stable small benign-appearing axillary lymph nodes. Stable tissue biopsy marker in the right breast. No other significant abnormalities are identified. There has been no significant change since the prior study. BI/SCRN MAMM (CAD)W/DUSTIN BILAT IMPRESSION: Stable bilateral screening mammogram. Yearly follow-up mammogram recommended. (A) ASSESSMENT CATEGORY: BIRADS Category 2: Benign. A letter regarding these results will be sent to the patient by the facility within 30 days. Approximately 10% of breast cancers are not detected by mammography. A normal mammogram should not delay biopsy of a clinically suspicious abnormality. Electronically Signed: James Fitzpatrick, at 12:23 EDT ,
== END | disposition home or self-care (01) ==
PROVIDERS: PCP Internal Medicine; Visit Provider Internal Medicine
DX: Z12.31 Encounter for screening mammogram for malignant neoplasm of breast (principal)
CPT/HCPCS: 77063; 77067

== ENCOUNTER 2022-07-11 11:48 | Emergency (ER) | payer MEDICARE, OTHER, SELFPAY ==
[2022-07-11 11:49] VITALS: BP 157/107; PULSE 73; RESP 18; TEMP 36.2; O2SAT 100; BMI 29.5
--- NOTE | 2022-07-11 12:13 | EDS_ITS ---
HPI History of Present Illness Chief Complaint: Upper Extremity Injury Detail of Chief Complaint: Injury to right shoulder that occurred this morning Informant: patient Narrative Narrative: Patient presents the emergency department complaint of injury to the right shoulder this morning. Patient states that she was putting her bra on when she felt of sudden sharp pain in her right shoulder. She complains of pain with movement. She feels like her fingers are cold. Patient is ambidextrous. Patient describes severe pain in the right shoulder. PFSH PFSH Medical History Left flank pain No significant medical problems Home Medications multivitamin 1 tab PO QDAY supplement 03/06/18 [History Last Taken 06/27/18 01:30] hydrocodone-acetaminophen 5-325mg 5mg-325mg 1 tab PO Q4H PRN PRN Pain 2 days #15 TABLETS 07/11/22 [Rx Last Taken Unknown] Allergy/AdvReac Type Severity Reaction Status Date / Time bee venom protein (honey bee) Allergy Anaphylaxis Verified 07/11/22 11:49 amoxicillin [From Augmentin] AdvReac Mild vomiting Verified 07/11/22 11:48 clavulanic acid AdvReac Mild vomiting Verified 07/11/22 11:48 [From Augmentin] Sulfa (Sulfonamide AdvReac Mild vomiting Verified 07/11/22 11:48 Antibiotics) black pepper AdvReac kuo lips Verified 07/11/22 11:48 orange dye Allergy Mild SOB, hives Uncoded 07/11/22 11:48 dairy AdvReac lactose Uncoded 07/11/22 11:48 intolerance Family History Brother Diabetes Mother Cancer uterine Other Heart disease Surgical History S/P breast biopsy S/P colonoscopy Social History Smoking Status: Never smoker alcohol intake: never ROS ROS ED Review of Systems ROS Unobtainable: other Constitutional Constitutional ED: Reports lethargy; Denies chills, fever(s), sweats or weight loss Eyes Eyes: Denies blurry vision, change in vision or diplopia ENT ENT ED: Denies rhinorrhea or sore throat Cardiovascular Cardiovascular: Denies chest pain, orthopnea or racing heartbeat Respiratory/Chest Respiratory/Chest: Reports dyspnea and dyspnea on exertion; Denies cough, orthopnea or sputum Gastrointestinal Gastrointestinal: Denies abdominal pain, diarrhea, nausea or vomiting Genitourinary Genitourinary ED: Denies dysuria, hematuria or urinary frequency Musculoskeletal Musculoskeletal: Reports other Details: Right shoulder pain ; Denies arthralgias, back pain, myalgias or neck pain Integumentary Denies abscess, Abrasions or rash Neurologic Neurologic: Denies headache(s) or weakness Psychiatric Psychiatric: Denies anxiety, depression or suicidal thoughts Endocrine Endocrinology: Denies polydipsia, polyphagia or polyuria Hematologic/Lymphatic Hematologic/Lymphatic: Denies easy bleeding, easy bruising or lymphadenopathy Allergic/Immunologic Allergic/Immunologic ED: Denies mouth swelling, tongue swelling or urticaria EXAM Physical Exam Const Vital Signs: 07/11/22 11:49 Temperature 97.2 F L Temperature Source Temporal Pulse Rate 73 Respiratory Rate 18 Blood Pressure 157/107 H Blood Pressure Mean 123 Pulse Ox 100 Oxygen Delivery Method Room Air Positive well nourished and well developed General Appearance ED: well developed and NAD HEENT Reports TM's clear and moist mucous membranes normocephalic and atraumatic; Negative for trauma or tenderness Tympanic Membrane ED: Yes TM's clear Eyes PERRL and EOMs intact bilaterally General Eye ED: Negative for pale conjunctiva or scleral icterus Neck no lymphadenopathy, supple and no JVD General: Negative for tenderness Chest Wall inspection of chest normal and palpation of chest normal Chest: Negative for tenderness Resp normal respiratory effort and clear to auscultation bilaterally Effort and Inspection: Negative for respiratory distress or pain with movement Auscultation: Negative for rhonchi, wheezes or diminished lung sounds Cardio regular rate, regular rhythm, S1 normal heart sound, S2 normal heart sound and no murmurs Peripheral Pulses: pulses 2+ throughout GI normal to inspection, nondistended, normoactive bowel sounds, soft to palpation, non-tender, non-distended and no masses Back/Spine no CVA tenderness and no thoracic nor lumbar tenderness Extremity Extremity Narrative: Patient is able to abduct the shoulder to about 90 degrees but is painful. There is no sulcus sign. There is no obvious deformity at the shoulder. She has pain with range of motion. Neurovascularly intact distally. Patient has normal pulses and normal cap refill at the hand. General Extremety ED: Negative for edema General Extremity: Negative for edema Neuro oriented x3, CN's II-XII intact bilaterally, no sensory deficits noted and gait normal Sensorium / Orientation: awake, alert, oriented to person, oriented to place and oriented to time Motor Exam: strength 5/5 throughout and strength abnormal Psych mental status grossly normal Skin no rashes or lesions noted and no wounds MDM MDM MDM Narrative Medical decision making narrative: Patient drove her self to the ER and does not want thing for pain here. I will write her a prescription for [place] for pain. Patient will follow up with orthopedics as I suspect this is likely soft tissue injury such as to the rotator cuff possibly or the glenoid labrum. Patient will be given a sling. Radiography Diagnostic Testin view x-rays of the right shoulder obtained interpreted by myself as no acute fractures or dislocations. Patient was noted to have some degenerative changes of the glenohumeral joint. Patient had some bony densities noted in the sca pula. 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 Discharge Plan Triage Chief Complaint: Upper Extremity Injury ED Provider: Kamila Irwin Dx/Rx/DC Orders Clinical Impression: Sprain of right shoulder Instructions: ED Shoulder Sprain Prescriptions: New hydrocodone-acetaminophen [hydrocodone-acetaminophen] 5-325 mg tablet 1 tab PO Q4H PRN PRN (Reason: Pain) 2 Days Qty: 15 0RF No Action multivitamin tablet 1 tab PO QDAY Primary Care Provider: Marsha Laird Referrals: Marsha Laird MD [Primary Care Provider] - Colten Pham DO [Med Staff - Active Staff] - 3-5 Days Disposition Disposition: Home, Self Care
--- NOTE | 2022-07-11 12:13 | RAD_ITS ---
STUDY: X-RAY - RIGHT SHOULDER REASON FOR EXAM: Female, 66 years old. Pain following injury. TECHNIQUE: 4 view(s) of the shoulder. COMPARISON: None. FINDINGS: There is moderate degenerative arthrosis of the glenohumeral articulation. Normal acromioclavicular joint. Normal acromion. There is evidence of a well-defined ossific densities in the region of the glenohumeral joint. 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 Normal humeral head and visualized proximal humerus. The soft tissue structures are unremarkable. Normal visualized pulmonary apex. RAD/Shoulder min 2 Views IMPRESSION: Degenerative changes of the glenohumeral joint with a well-defined bony densities within the joint suggestive of osteochondromatosis. Electronically Signed: Sb Medina MD at 12:45 EDT ,
[2022-07-11 13:04] VITALS: RESP 16
== END 2022-07-11 13:26 | disposition home or self-care (01) ==
PROVIDERS: Emergency Provider Emergency Medicine; PCP Internal Medicine; Visit Provider Emergency Medicine
DX: S43.401A Unspecified sprain of right shoulder joint, initial encounter (principal); X58.XXXA Exposure to other specified factors, initial encounter; Y93.89 Activity, other specified; Y99.8 Other external cause status; M19.011 Primary osteoarthritis, right shoulder
CPT/HCPCS: 73030; 99283

== ENCOUNTER → 2022-07-25 | Outpatient (CLI) | payer MEDICARE, OTHER, SELFPAY ==
--- NOTE | 2022-07-25 15:44 | MRI_ITS ---
STUDY: MRI RIGHT SHOULDER REASON FOR EXAM: Anterior right shoulder pain and decreased range of motion from pulling injury 2 weeks ago. TECHNIQUE: Standardized fat and water weighted pulse sequences were obtained in all 3 orthogonal planes. COMPARISON: Radiographs 07/11/2022. FINDINGS: There is supraspinatus tendinosis, a small high-grade partial thickness tear of the articular surface of the distal supraspinatus tendon (T2 coronal image 12) measuring 0.4 cm in length, and a linear high-grade partial-thickness tear of the articular surface of the distal anterior supraspinatus tendon at the greater tuberosity insertion (T2 coronal image 14). Normal infraspinatus tendon. There is mild subscapularis tendinosis (T2 axial image 8) without discrete tendon tear. Normal teres minor tendon. Normal supraspinatus muscle. Normal infraspinatus muscle. Normal subscapularis muscle. Normal teres minor muscle. There is glenohumeral arthrosis with marginal osteophytes and humeral head, subchondral cystic change of the glenoid and superior medial humeral head and chondral thinning (T2 coronal images 8-11). There is a glenohumeral joint effusion with intra-articular bodies in the subscapularis recess (T2 sagittal images 15-19). There is mild cystic change of the greater tuberosity. There is a partial tear of the intracapsular long biceps tendon (T2 sagittal images 13, 14). There is diffuse degeneration of the labrum. Normal capsulo- ligamentous complex. There is no significant acromioclavicular arthrosis. There is a Type II morphology (curved), with a neutral orientation. There is no subacromial-subdeltoid bursal fluid. Normal visualized coracohumeral and coracoacromial ligaments. Normal deltoid muscle. Normal trapezius muscle. MRI/Upper Ext Joint Only(Routine) IMPRESSION: Partial-thickness tears and tendinosis of the supraspinatus tendon. Mild subscapularis tendinosis. 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 Partial tear of the long biceps tendon. Glenohumeral joint effusion. Electronically Signed: Guy Rivera MD at 17:19 EDT ,
== END | disposition home or self-care (01) ==
LOC: MRI 15:42
PROVIDERS: PCP Internal Medicine; Visit Provider Student in an Organized Health Care Education/Training Program
DX: S43.491A Other sprain of right shoulder joint, initial encounter (principal)
CPT/HCPCS: 73221

== ENCOUNTER 2024-04-24 08:24 | Emergency (ER) | payer MEDICARE, OTHER, SELFPAY ==
[2024-04-24 08:25] VITALS: BP 155/89; PULSE 66; RESP 18; TEMP 36.6; O2SAT 99; BMI 30.2
--- NOTE | 2024-04-24 09:00 | CT_ITS ---
HISTORY: Pain. TECHNIQUE: Multiple axial images were obtained of the head without intravenous contrast. A radiation dose optimization technique was used for this scan. 244 images. COMPARISON: None. FINDINGS: BRAIN PARENCHYMA: Mild chronic small vessel ischemic gliosis. No acute intra-axial hemorrhage. CSF SPACES: Cerebral ventricles, cortical sulci, and other extra-axial CSF spaces within normal limits in size for age. No midline shift or other significant mass effect. No acute extra-axial hemorrhage. 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 No significant air fluid levels in the paranasal sinuses or mastoid air cells. Unremarkable orbits. CT/Brain/Head without Contrast IMPRESSION: No acute intracranial process identified. Electronically Signed: Marii Galvan MD at 10:18 EDT ,
--- NOTE | 2024-04-24 09:15 | ED.RN ---
PT DECLINES REGLAN AND BENADRYL. PT WILLING TO TAKE TORADOL
[2024-04-24] MEDS: Ketorolac 15 MG/ML Vial IV (09:18)
[2024-04-24] MEDS: 0.9% Normal Saline (1000mL) 1,000 ML 999 ML IV (09:19)
[2024-04-24 10:25] VITALS: BP 150/84; PULSE 67; RESP 16; O2SAT 99
--- NOTE | 2024-04-24 10:36 | EDS_ITS ---
HPI History of Present Illness Chief Complaint: Headache Narrative Narrative: 68-year-old female with headache x 5 days. She states it is a 2/3 of 10. It was not acute in onset. Denies lightheadedness, dizziness, blurry vision. She has mild light sensitivity. She has mild sound sensitivity. No head trauma. Patient states she has tried ibuprofen at home without relief. She states she has a history of migraines in the past distantly. She states it does not feel like this. She also feels that she has some bumps on the back of her neck. She thinks these are part of the headache. She has not had a fever, chills, body aches. No neck stiffness PFSH PFSH Medical History Left flank pain No significant medical problems Home Medications ?Medication ?Instructions ?Recorded ?Last Taken ?Type multivitamin 1 tab PO QDAY supplement 03/06/18 06/27/18 01:30 History hydrocodone-acetaminophen 5-325mg 1 tab PO Q4H PRN PRN Pain 2 days 07/11/22 Unknown Rx 5mg-325mg #15 TABLETS Allergy/AdvReac Type Severity Reaction Status Date / Time bee venom protein (honey bee) Allergy Anaphylaxis Verified 07/11/22 11:49 orange (food color) Allergy Shortness Verified 07/17/22 10:51 of breath amoxicillin (From Augmentin) AdvReac Mild vomiting Verified 07/11/22 11:48 clavulanic acid (From AdvReac Mild vomiting Verified 07/11/22 11:48 Augmentin) Sulfa (Sulfonamide AdvReac Mild vomiting Verified 07/11/22 11:48 Antibiotics) black pepper AdvReac kuo lips Verified 07/11/22 11:48 lactose AdvReac Other Verified 07/17/22 10:51 Family History Brother Diabetes Mother Cancer uterine Other Heart disease Surgical History S/P colonoscopy S/P breast biopsy Social History Smoking Status: Never smoker alcohol intake: never ROS ROS ED Constitutional Constitutional ED: Denies chills, fever(s) or sweats Eyes Eyes: Denies blurry vision or change in vision ENT ENT ED: Denies ear pain or sore throat Cardiovascular Cardiovascular: Denies chest pain, palpitations or racing heartbeat Respiratory/Chest Respiratory/Chest: Denies cough, dyspnea or sputum Gastrointestinal Gastrointestinal: Denies abdominal pain, constipation, diarrhea, nausea or vomiting Genitourinary Genitourinary ED: Denies dysuria, hematuria or urinary frequency Musculoskeletal Musculoskeletal: Denies arthralgias, myalgias or neck pain Integumentary Denies abscess, Abrasions or rash Neurologic Neurologic: Reports headache(s); Denies paresthesias or weakness Psychiatric Psychiatric: Denies anxiety, depression, suicidal ideation or suicidal thoughts Endocrine Endocrinology: Denies polydipsia or polyuria EXAM Physical Exam Const Vital Signs: 04/24/24 08:25 04/24/24 10:25 Temperature 97.8 F Temperature Source Temporal Pulse Rate 66 67 Respiratory Rate 18 16 Blood Pressure 155/89 H 150/84 H Blood Pressure Mean 111 106 Pulse Ox 99 99 Oxygen Delivery Method Room Air Positive well nourished General Appearance ED: NAD; Negative for pallor HEENT Reports normocephalic and TM's clear atraumatic and trauma Tympanic Membrane ED: Yes TM's clear Eyes PERRL Neck no lymphadenopathy and supple Resp normal respiratory effort Auscultation: Negative for rales, rhonchi or wheezes Cardio regular rate and regular rhythm GI non-tender and non-distended Neuro oriented x3 and CN's II-XII intact bilaterally Sensorium / Orientation: awake and alert Psych mental status grossly normal Skin General Skin Exam: Negative for jaundice or pallor MDM MDM MDM Narrative Medical decision making narrative: Patient presenting with headache. It is 2?3 of 10. No red flag signs or symptoms. No focal neurologic deficits or lateralizing signs or symptoms. Patient states he has a history of migraine but it did not feel like this. She has been to feel the back of her neck because she feels like there is some knots there although I felt 1 possible area where there is a knot it does not feel like lymphadenopathy or any acute. There is no rashes. Minimal to palpation. IV line was established. I ordered her Reglan, Benadryl, Toradol to help with her headache. She refused the Reglan and the Benadryl. CT brain was obtained and is negative. On reevaluation the patient's head is still about the same. Patient now wants to be discharged home as his drive to [place] today. Impression: 1. Headache Radiography Diagnostic Testing: Clinical Impression(s) from Imaging Studies Brain CT 04/24/24 09:00 IMPRESSION: No acute intracranial process identified. Electronically Signed: Marii Galvan MD at 10:18 EDT , Discharge Plan Triage Chief Complaint: Headache ED Provider: Venancio Linder Dx/Rx/DC Orders Instructions: ED Headache Unspecified Prescriptions: No Action multivitamin tablet 1 tab PO QDAY hydrocodone-acetaminophen [hydrocodone-acetaminophen] 5-325 mg tablet 1 tab PO Q4H PRN PRN (Reason: Pain) 2 Days Qty: 15 0RF Primary Care Provider: Marsha Laird Referrals: Marsha Laird MD [Primary Care Provider] - Print Language: [place] Disposition Disposition: Home, Self Care
[2024-04-24 11:06] VITALS: BP 140/78; PULSE 65; RESP 14; TEMP 36.6; O2SAT 99
== END 2024-04-24 11:07 | disposition home or self-care (01) ==
PROVIDERS: Emergency Provider Student in an Organized Health Care Education/Training Program; PCP Internal Medicine; Visit Provider Student in an Organized Health Care Education/Training Program
DX: R51.9 Headache, unspecified (principal)
CPT/HCPCS: 70450; 96361; 96374; 99283; A4216

== ENCOUNTER → 2024-05-21 | Outpatient (CLI) | payer MEDICARE, OTHER, SELFPAY ==
--- NOTE | 2024-05-21 15:08 | BI_ITS ---
MAMMOGRAPHY - BILATERAL SCREENING 3-D TOMOSYNTHESIS REASON FOR EXAM: Female, 68 years old. SCREENING PERTINENT HISTORY: No significant family history. TECHNIQUE: 2-D mammograms and 3-D Tomosynthesis of the breast (s) were performed. CAD was performed. COMPARISON: 07/05/2022 FINDINGS: The breast composition is composed of scattered fibroglandular density. Scattered benign calcifications are seen. No dense spiculated masses or suspicious microcalcifications are identified. No architectural distortion is identified. There is no skin thickening or retraction. There has been no significant change since the prior study. No change in bilateral benign rodlike calcifications. BI/SCRN MAMM (CAD)W/DUSTIN BILAT IMPRESSION: No mammographic signs of malignancy. Routine yearly mammograms recommended. ASSESSMENT CATEGORY: BIRADS Category 2: Benign. A letter regarding these results will be sent to the patient by the facility within 30 days. FOLLOW UP RECOMMENDATION: Yearly follow up mammogram recommended. (A) Approximately 10% of breast cancers are not detected by mammography. A normal mammogram should not delay biopsy of a clinically suspicious abnormality. Electronically Signed: Javad Reaves MD at 16:12 EDT ,
== END | disposition home or self-care (01) ==
LOC: OPBI 15:01
PROVIDERS: PCP Nurse Practitioner Adult Health; Referring Provider Nurse Practitioner Adult Health; Visit Provider Nurse Practitioner Adult Health
DX: Z12.31 Encounter for screening mammogram for malignant neoplasm of breast (principal)
CPT/HCPCS: 77063; 77067

== ENCOUNTER → 2025-05-23 | Outpatient (CLI) | payer MEDICARE, OTHER, SELFPAY ==
--- NOTE | 2025-05-23 15:05 | BI_ITS ---
EXAM: SCRN MAMM (CAD)W/DUSTIN BILAT DATE: 05/23/2025 CLINICAL HISTORY: F, Age 69 y/o , SCREENING TECHNIQUE: SCRN MAMM (CAD)W/DUSTIN BILAT COMPARISON: Prior exam(s) dated 05/21/2024, 07/05/2022, 06/27/2021. FINDINGS: TISSUE DENSITY: There are scattered areas of fibroglandular density. Bilateral Breast Mammographic Findings: No significant masses, calcifications or other abnormalities are identified. BI/SCRN MAMM (CAD)W/DUSTIN BILAT IMPRESSION: There is no mammographic evidence of malignancy. OVERALL FINAL ASSESSMENT BI-RADS 1: NEGATIVE. RECOMMEND ANNUAL MAMMOGRAPHIC SCREENING. RECOMMENDATION: Routine annual follow-up in 1 Year. A letter with findings and recommendations will be mailed to the patient. Reading Location: [id number]
--- OUTSIDE RECORDS SUMMARY | 2025-05-24 00:09 | XMS RPT_ITS | CCD ---
Author Organization [facility] Inform ion Partnership [facility] Care Team Providers Care Call Out Operator Name Role Phone Marsha Laird MD Primary Care Provider Unavailable Primary Care Provider Unavailmartin Blanco CRITICAL CARE SPECIALIST.TEMPLATE WORKER, Александр Medina Primary Care Provider BELLA АЛЕКСАНДР M Referring Unavailable BELLA, АЛЕКСАНДР M Primary Care Unavailable BELLA, АЛЕКСАНДР M Referring Unavailable BELLA, АЛЕКСАНДР M Primary Care Unavailable BELLA, АЛЕКСАНДР M Referring Unavailable BELLA, АЛЕКСАНДР M Primary Care Unavailable BELLA, АЛЕКСАНДР M Referring Unavailable BELLA, АЛЕКСАНДР M Primary Care Unavailable Bella REFUELING RAMP ATTENDANT, Александр Referring Unavailable Bella REFUELING RAMP ATTENDANT, Александр Primary Care Unavailable Bella REFUELING RAMP ATTENDANT, Александр Attending Unavailable Bella REFUELING RAMP ATTENDANT, Александр Referring Unavailable Bella REFUELING RAMP ATTENDANT, Александр Primary Care Unavailable Bella REFUELING RAMP ATTENDANT, Александр Attending Unavailable Allergies Allergy Classification Reported Allergen(s) Allergy Type Date of Onset Reaction(s) Facility Amoxicillin / Clavulanate (2 sources) Amoxicillin / Clavulanate Drug Allergy 5 Vomiting [facility] HMG-CoA Reductase Inhibitors (statins) (2 sources) atorvastatin Drug Allergy 9 [facility] (5 sources) Amoxicillin Drug Allergy 2 vomiting [facility] Work Phone: (5 sources) Black Pepper Preparation Drug Allergy 2 kuo lips [facility] Work Phone: (5 sources) Clavulanate Drug Allergy 2 vomiting [facility] Work Phone: (6 sources) Sulfonamides (Antibiotic); Translations: [Sulfa (Sulfonamide Antibiotics)] Propensity to adverse reactions 2 vomiting [facility] Repository (5 sources) bee venom protein (honey bee) Allergy to substance 2 Anaphylaxis [facility] Work Phone: (1 source) orange dye Allergy to substance 2 SOB, hives [facility] Work Phone: (1 source) dairy Propensity to adverse reactions 2 lactose intolerance [facility] Work Phone: (4 sources) Lactose Drug Allergy 2 Other [facility] Work Phone: (5 sources) [place] - fruit; Translations: [orange (food color)] Allergy to substance 2 Shortness of breath [facility] (16 sources) Amoxicillin / Clavulanate; Translations: [AMOXICILLIN-POT CLAVULANATE] Drug Allergy 5 Vomiting [facility] (16 sources) atorvastatin; Translations: [ATORVASTATIN CALCIUM] Drug Allergy 9 [facility] Work Phone: [phone] (18 sources) Bee Sting; Translations: [BEE STING] Propensity to adverse reactions 9 Swelling [facility] Work Phone: [phone] (17 sources) orange food dye [Other] Propensity to adverse reactions 7 Hives [facility] Work Phone: (1 source) OTHER; Translations: [OTHER] Propensity to adverse reactions (disorder) 7 [facility] Repository (1 source) Amoxicillin Drug Allergy 2 [facility] Repository (1 source) Black Pepper Preparation Drug Allergy 2 [facility] Rep[facility] (1 source) Clavulanate Drug Allergy 2 [facility] Rep[facility] (1 source) Lactose Drug Allergy 2 [facility] (1 source) bee venom protein (honey bee) Drug allergy (disorder) 2 [facility] Repository Medications Current Medications Medication Drug Class(es) Dates Sig (Normalized) Sig (Original) acetaminophen 325 mg / HYDROcodone bitartrate 5 mg oral tablet (5 sources) Opioid Agonist Start: 07-11-2022 take 1 tablet by mouth every four hours as needed Hydrocodone-Acetam inophen Active 1 TABLET PO EVERY 4 HOURS NEEDED 15 2 July 11, 2022 codeine phosphate 2 mg/ml / guaiFENesin 20 mg/ml oral solution (1 source) Opioid Agonist Start: 11-23-2022 End: 11-28-2022 take 10 mL by mouth three times daily as needed codeine-guaiFENesi n (GUAIFENESIN AC) 10-100 mg/5 mL syrup Indications: Bronchitis Take 10 mL by mouth three times daily as needed for up to 5 days. 150 mL 0 11/23/2022 11/28/2022 Active Comment on above: Take 10 mL by mouth three times daily as needed for up to 5 days. doxycycline hyclate 100 mg oral tablet (1 source) Tetracycline-class Drug Start: 11-23-2022 End: 11-30-2022 take 1 tablet by mouth twice daily doxycycline (VIBRA-TABS) 100 mg tablet Take 1 tablet by mouth twice daily for 7 days. 14 tablet 0 11/23/2022 11/30/2022 Active Comment on above: Take 1 tablet by [facility] twice daily for 7 days. ibuprofen 200 mg oral tablet (17 sources) Nonsteroidal Anti-inflammatory Drug Start: 08-31-2007 take 1 tablet by mouth once as needed for pain ibuprofen (ADVIL) 200 mg ORAL Tab Take one(1) to two(2) tablets every two(2) hours as needed for pain. 0 08/31/2007 Active Comment on above: Take one(1) to two(2 ) tablets every two(2) hours as needed for pain. Multivitamin capsule (17 sources) take 1 capsule by mouth once daily Multivitamin capsule Take 1 capsule by mouth once daily. Active take 1 capsule by mouth once dami ly Multivitamin capsule Take 1 capsule by mouth once daily. 0 Active Comment on above: Take 1 capsule by mo [facility] once daily. Multivitamin preparation (5 sources) Start: 03-06-2018 take 1 tablet by mouth once daily Multivitamin Active 1 TABLET PO daily March 06, 2018 12:00am Turmeric extract (17 sources) take 1000 mg by mouth once daily TURMERIC ORAL Take 1,000 mg by mouth once daily. Active take 1000 mg by mouth once daily TURMERIC ORAL Take 1,000 mg by mouth once daily. 0 Active Comment on above: Take 1,000 mg by leyda once daily. Completed/Discontinued Medications Medication Drug Class(es) Dates Sig (Normalized) Sig (Original) [id number] 200 actuat albuterol 0.09 mg/actuat metered dose inhaler (4 sources) beta2-Adrenergic Agonist Start: 11-23-2022 End: 05-19-2024 take 2 puff(s) by inhalation every six hours as needed albuterol HFA (PROAIR HFA) 90 mcg/actuation inhaler Inhale 2 Puffs as instructed every 6 hours as needed. 1 Each 0 11/23/2022 05/19/2024 Discontinued Comment on above: Inhale 2 Puffs as in structed every 6 hours as needed. Aspirin (5 sources) Platelet Aggregation Inhibitor, Nonsteroidal Anti-inflammatory Drug End: 05-19-2024 take 2 tablets by mouth once daily ASPIRIN (ASPIR-81 ORAL) Take 2 tablets by mouth once daily. 0 05/19/2024 Discontinued take 2 tablets by mouth once dami ly ASPIRIN (ASPIR-81 ORAL) Take 2 tablets by mouth once daily. 0 Active Comment on above: Take 2 tablets by mo [facility] once daily. Problems Active Problems Problem Classification Problem Date Documented Da te Episodic/Chronic Abdominal pain (5 sources) Left flank pain; Translations: [Unspecified abdominal pain] Episodic Chronic obstructive pulmonary disease and bronchiectasis (1 source) Bronchitis; Translations: [Bronchitis, not specified as acute or chronic] Episodic Crushing injury or internal injury (10 sources) Crushing injury of lower limb; Translations: [Crushing injury of left lower leg, initial encounter] Episodic Diabetes mellitus without complication (8 sources) Hyperglycemia; Translations: [Hyperglycemia, unspecified] Onset: 08-16-2024 07-15-2024 Episodic Disorders of lipid metabolism (20 sources) Hyperlipidemia; Translations: [Hyperlipidemia, unspecified] Onset: 10-09-2009 10-09-2009 Chronic Lymphadenitis (1 source) Lymphadenopathy; Translations: [Enlarged lymph nodes, unspecified] 05-19-2024 Episodic Nutritional deficiencies (2 sources) Vitamin D deficiency; Translations: [Vitamin D deficiency, unspecified] Onset: 05-24-2024 05-19-2024 Chronic Other injuries and conditions due to external causes (5 sources) Degloving injury; Translations: [Other injury of unspecified body region, initial encounter] Episodic Other screening for suspected conditions (not mental disorders or infectious disease) (20 sources) Mammography abnormal; Translations: [Other abnormal and inconclusive findings on diagnostic imaging of breast] Onset: 04-06-2012 04-06-2012 Episodic Other upper respiratory disease (5 sources) Respiratory tract congestion; Translations: [Nasal congestion] Episodic Residual codes; unclassified (1 source) Influenza-like symptoms; Translations: [Other general symptoms and signs] Episodic Sprains and strains (5 sources) Unspecified sprain of right shoulder joint, initial encounter; Translations: [Sprain of right shoulder] Episodic Superficial injury; contusion (5 sources) Contusion of thigh; Translations: [Contusion of left thigh, sequela] Episodic Unclassified (5 sources) Body mass index 25-29 - overweight; Translations: [Body mass index (BMI) of 25.0 to 29.9] Past or Other Problems Problem Classification Problem Date Documented Da te Episodic/Chronic Immunizations and screening for infectious disease (3 sources) Suspected disease caused by 2019-nCoV; Translations: [Suspected COVID-19 virus infection] Onset: 05-24-2024 Episodic Nonmalignant breast conditions (17 sources) Pain of breast; Translations: [Mastodynia] Onset: 01-24-2011 01-24-2011 Episodic Unclassified (1 source) Patient encounter status 04-19-2025 Viral infection (20 sources) Disease caused by nCoV; Translations: [COVID-19] Onset: 10-09-2009 10-09-2009 Episodic Results Test Name Value Interpretation Reference Range Facility HbA1c (Bld)on 05-17-2025 Average glucose Estimated from glycated hemoglobin (Bld) [Mass/Vol] 123 mg/dL Normal [facility] Comment on above: Order Comment: Speci men Type: BLOOD SPECIMEN Ordering Facility: [facility] Address: [address] [place] [address] Result Comment: eAG: (Estimated average glucose) is a calculated value from HgbA1c and is truck sales representative of the average blood glucose level in the last 2-3 month period. Performed By: #### 5 5454-3 #### [facility] CLIA [id number] [address] [place] [address] [place] HbA1c (Bld) [Mass fraction] 5.9 % High 4.3-5.6 [facility] Comment on above: Order Comment: Chase almonte Type: BLOOD SPECIMEN Ordering Facility: [facility] Address: [address] [place] [address] Result Comment: Amer ican Diabetes Association guidelines indicate that patients with HgbA1c in the range 5.7-6.4% are at increased risk for development of diabetes, and intervention by lifestyle modification may be beneficial. HgbA1c greater or equal to 6.5% is considered diagnostic of diabetes. Performed By: #### 5 5454-3 #### [facility] CLIA [id number] [address] [place] [address] [place] Lipid 1996 panelon 5 Cholesterol [Mass/Vol] 338 mg/dL High <200 [facility] Comment on above: Order Comment: Chase almonte Type: BLOOD SPECIMEN Ordering Facility: [facility] Address: [address] [place] [address] Result Comment: <200 mg/dL, Desirable 200-239 mg/dL, Borderline high >239 mg/dL, High Performed By: #### 2 4331-1 #### [facility] CLIA [id number] [address] [place] [address] [place] Cholesterol in HDL [Mass/Vol] 66 mg/dL Normal >39 [facility] Comment on above: Order Comment: Chase almonte Type: BLOOD SPECIMEN Ordering Facility: [facility] Address: [address] [place] [address] Result Comment: 40-5 9 mg/dL, Acceptable >59 mg/dL, High: Negative risk factor for coronary heart disease <40 mg/dL, Low: Positive risk factor for coronary heart disease Performed By: #### 2 4331-1 #### [facility] CLIA [id number] [address] [place] [address] [place] Cholesterol in LDL [Mass/Vol] 248 mg/dL High <100 [facility] Comment on above: Order Comment: Chase almonte Type: BLOOD SPECIMEN Ordering Facility: [facility] Address: [address] [place] [address] Result Comment: <100 mg/dL, Optimal 100-129 mg/dL, Near optimal/above optimal 130-159 mg/dL, Borderline high 160-189 mg/dL, High >189 mg/dL, Very high Secondary prevention optimal LDL Cholesterol levels are recommended to be <70 mg/dL LDL cholesterol is calculated using the Thacker-NIH equation. Performed By: #### 2 4331-1 #### [facility] CLIA [id number] [address] [place] [address] [place] Cholesterol in LDL/Cholesterol in HDL [Mass ratio] 3.76 {ratio} High <2.54 [facility] Comment on above: Order Comment: Chase almonte Type: BLOOD SPECIMEN Ordering Facility: [facility] Address: [address] [place] [address] Result Comment: Louie del castillo: 1. National Cholesterol Education Program ATP III Guideline At-A-Glance Quick Desk Reference: National Heart, Lung, and Blood Ellinger. National Institutes of Health. 2001: NIH Publication No. 01-3305. 2. An International Atherosclerosis Society position paper: global recommendations for the management of dyslipidemia: executive summary, Atherosclerosis. 2014: 232(2):410-413. Performed By: #### 2 4331-1 #### [facility] CLIA [id number] [address] [place], [place] [address] [place] [address] [place] Cholesterol in VLDL [Mass/Vol] 31 mg/dL High <30 [facility] Comment on above: Order Comment: Chase almonte Type: BLOOD SPECIMEN Ordering Facility: [facility] Address: [address] [place] [address] Performed By: #### 2 4331-1 #### [facility] CLIA [id number] [address] [place] [address] [place] Cholesterol non HDL [Mass/Vol] 272 mg/dL High <130 [facility] Comment on above: Order Comment: Speci men Type: BLOOD SPECIMEN Ordering Facility: [facility] Address: [address] [place] [address] Result Comment: <130 mg/dL, Optimal 130-159 mg/dL, Near optimal/above optimal 160-189 mg/dL, Borderline high 190-219 mg/dL, High >219 mg/dL, Very high Secondary prevention optimal non HDL Cholesterol levels are recommended to be <100 mg/dL Performed By: #### 2 4331-1 #### [facility] CLIA [id number] [address] [place] [address] [place] Cholesterol.total/ Cholesterol in HDL [Mass ratio] 5.12 {ratio} High <5.10 [facility] Comment on above: Order Comment: Sylviai men Type: BLOOD SPECIMEN Ordering Facility: [facility] Address: [address] [place] [address] Performed By: #### 2 4331-1 #### [facility] CLIA [id number] [address] [place] [address] [place] [facility] FASTING TIME 12 hrs Normal [facility] Comment on above: Order Comment: Speci men Type: BLOOD SPECIMEN Ordering Facility: [facility] Address: [address] [place] [address] Performed By: #### 2 4331-1 #### [facility] CLIA [id number] [address] [place] [address] [place] Triglyceride [Mass/Vol] 134 mg/dL Normal <150 [facility] Comment on above: Order Comment: Speci men Type: BLOOD SPECIMEN Ordering Facility: [facility] Address: [address] [place] [address] Result Comment: <150 mg/dL, Normal 150-199 mg/dL, Borderline high 200-499 mg/dL, High >499 mg/dL, Very high Performed By: #### 2 4331-1 #### [facility] CLIA [id number] [address] [place] [address] [place] CNPNon 05-13-2025 [facility] Telephone (4CQ) -------- KEYA MAGANA ([id number]) 1956 F Date Time Provider Department 05/13/25 АЛЕКСАНДР BLANCO 4CQ During your visit today, we recorded the following information about you: Jackeline Schultz 05/13/2025 3:09 PM Signed Faxed order to [facility] after Tita called and requested it from [facility]. Faxed at 3:01 pm on 05/13/25 to [phone]. Faxed was confirmed sent Allergies As of Date: 05/13/2025 Noted Allergy Reaction AUGMENTIN (AMOXICILLIN-POT CLAVUL*12/02/2014 11 - Vomiting BEE STING 10/09/2009 7 - Swelling LIPITOR (ATORVASTATIN CALCIUM) 10/09/2009 Comments: severe muscle pain orange food dye [Other] 08/31/2007 4 - Hives Date Reviewed: 11/23/2022 Reviewed by: Juhi Santos LPN - Fully Assessed Reason for Visit: Orders [681] Cmt: Tita from [facility] called and needed SOTO Screening order. Faxed order to [phone] at 3:01 pm 05/13/25. Prescriptions as of 05/13/2025 - TURMERIC ORAL Take 1,000 mg by mouth once daily. - Multivitamin capsule Take 1 capsule by mouth once daily. - ibuprofen (ADVIL) 200 mg ORAL Tab Take one(1) to two(2) tablets every two(2) hours as needed for pain. Problem List As Of Date 05/13/2025 Noted Resolved Hyperlipemia [E78.5] 10/09/2009 Herpes Zoster [B02.9] 10/09/2009 Mastodynia [N64.4] 01/24/2011 Abnormal mammogram, unspecified [R92.8] 04/06/2012 Encounter Status:Closed by JACKELINE SCHULTZ on 05/13/25 [facility] 02-15-2025 CNPN Telephone (AGINTMLW) -------- KEYA MAGANA ([id number]) 1956 F Date Time Provider Department 02/15/25 АЛЕКСАНДР BLANCO AGINTMLW During your visit today, we recorded the following information about you: Gladis Rosa LPN 02/15/2025 7:26 AM Signed ----- Message from Bianca Medina MA sent at 08/18/2024 11:41 AM EDT ----- Recheck A1c in 6 months CHANEL Mcbride Charlene M, CRITICAL CARE SPECIALIST.TEMPLATE WORKER 02/15/2025 12:28 PM Signed Addended by: АЛЕКСАНДР BLANCO on: 02/15/2025 12:28 PM Modules accepted: Gladis Ortiz LPN 02/17/2025 9:31 AM Signed Call placed to pt, per pt she has been doing a lot of traveling. Pt states that she will probably not be able to get lab work done until March 2025. Pt states that she will get it done as soon as she is back in the area. Gladis Rosa LPN Allergies As of Date: 02/15/2025 Noted Allergy Reaction AUGMENTIN (AMOXICILLIN-POT CLAVUL*12/02/2014 11 - Vomiting BEE STING 10/09/2009 7 - Swelling LIPITOR (ATORVASTATIN CALCIUM) 10/09/2009 Comments: severe muscle pain orange food dye [Other] 08/31/2007 4 - Hives Date Reviewed: 11/23/2022 Reviewed by: Juhi Santos LPN - Fully Assessed Primary Visit Diagnosis:Elevated fasting blood sugar [R73.01] Order(s):HEMOGLOBIN A1C [UFNND1L] Order #: [id number] FUTURE Prescriptions as of 02/17/2025 - TURMERIC ORAL Take 1,000 mg by mouth once daily. - Multivitamin capsule Take 1 capsule by mouth once daily. - ibuprofen (ADVIL) 200 mg ORAL Tab Take one(1) to two(2) tablets every two(2) hours as needed for pain. Problem List As Of Date 02/15/2025 Noted Resolved Hyperlipemia [E78.5] 10/09/2009 Herpes Zoster [B02.9] 10/09/2009 Mastodynia [N64.4] 01/24/2011 Abnormal mammogram, unspecified [R92.8] 04/06/2012 Encounter Status:Closed by GLADIS ROSA on 02/15/25 [facility] 10-05-2024 CNPN Telephone (AGINTMLW) -------- KEYA MAGANA ([id number]) 1956 F Date Time Provider Department 10/05/24 АЛЕКСАНДР BLANCO During your visit today, we recorded the following information about you: Saima Mosley MA 10/05/2024 10:53 AM Signed ----- Message from Александр Blanco APRN.TEMPLATE WORKER sent at 10/03/2024 5:29 PM EST ----- Cologuard negative Saima Mosley MA 10/05/2024 10:54 AM Signed Patient informed of results. Saima Mosley MA Allergies As of Date: 10/05/2024 Noted Allergy Reaction AUGMENTIN (AMOXICILLIN-POT CLAVUL*12/02/2014 11 - Vomiting BEE STING 10/09/2009 7 - Swelling LIPITOR (ATORVASTATIN CALCIUM) 10/09/2009 Comments: severe muscle pain orange food dye [Other] 08/31/2007 4 - Hives Date Reviewed: 11/23/2022 Reviewed by: Juhi Santos LPN - Fully Assessed Reason for Visit: Results [95] Prescriptions as of 10/05/2024 - TURMERIC ORAL Take 1,000 mg by mouth once daily. - Multivitamin capsule Take 1 capsule by mouth once daily. - ibuprofen (ADVIL) 200 mg ORAL Tab Take one(1) to two(2) tablets every two(2) hours as needed for pain. Problem List As Of Date 10/05/2024 Noted Resolved Hyperlipemia [E78.5] 10/09/2009 Herpes Zoster [B02.9] 10/09/2009 Mastodynia [N64.4] 01/24/2011 Abnormal mammogram, unspecified [R92.8] 04/06/2012 Encounter Status:Closed by SAIMA MOSLEY on 10/05/24 [facility] 08-17-2024 JEANNETTE Telephone (MANUELFAMPLE) -------- KEYA MAGANA ([id number]) 1956 F Date Time Provider Department 08/17/24 АЛЕКСАНДР BLANCO During your visit today, we recorded the following information about you: Bianca Linder MA 08/17/2024 9:24 AM Signed ----- Message from Александр Blanco APRN.TEMPLATE WORKER sent at 08/17/2024 7:05 AM EDT ----- Hgb A1c shows prediabetes. Please review low carb sugar diet, importance of maintaining a healthy weight and exercise to slow progression to diabetes Bianca Linder MA 08/17/2024 9:26 AM Signed Patient is informed and she would like to know if medication is needed yet or if she whould just wait in 3 months. She states that she does exercise a lot. CHANEL Mcbride Charlene M, APRN.CNP 08/17/2024 10:22 AM Signed No need for medication. She just needs to follow as reviewed below Gladis Rosa LPN 08/17/2024 4:11 PM Signed Left message for pt to call office. MARIO Roy Brenda, LPN 08/17/2024 4:51 PM Signed Pt called office back. Pt aware that no medication is needed at this time. Pt is asking if a HgbA1c should be rechecked in 3-4 months. Also she is asking what being under a lot of stress will do to her blood sugar. Please advise. MARIO Roy Charlene M, APRN.TEMPLATE WORKER 08/18/2024 7:10 AM Signed As low as it is I would recommend just one year follow up. If she really wants we can check in 6 months but her level is borderline and as long as she makes changes this will come down Bianca Linder MA 08/18/2024 11:41 AM Signed Patient is informed and she would like to recheck 6 months reminder placed Bianca Linder MA Allergies As of Date: 08/17/2024 Noted Allergy Reaction AUGMENTIN (AMOXICILLIN-POT CLAVUL*12/02/2014 11 - Vomiting BEE STING 10/09/2009 7 - Swelling LIPITOR (ATORVASTATIN CALCIUM) 10/09/2009 Comments: severe muscle pain orange food dye [Other] 08/31/2007 4 - Hives Date Reviewed: 11/23/2022 Reviewed by: Juhi Santos LPN - Fully Assessed Reason for Visit: Results [95] Prescriptions as of 08/18/2024 - TURMERIC ORAL Take 1,000 mg by mouth once daily. - Multivitamin capsule Take 1 capsule by mouth once daily. - ibuprofen (ADVIL) 200 mg ORAL Tab Take one(1) to two(2) tablets every two(2) hours as needed for pain. Problem List As Of Date 08/17/2024 Noted Resolved Hyperlipemia [E78.5] 10/09/2009 Herpes Zoster [B02.9] 10/09/2009 Mastodynia [N64.4] 01/24/2011 Abnormal mammogram, unspecified [R92.8] 04/06/2012 Encounter Status:Closed by BIANCA LINDER on 9/24/24 Normal [facility] HbA1c (Bld)on 08-16-2024 Average glucose Estimated from glycated hemoglobin (Bld) [Mass/Vol] 123 mg/dL Normal [facility] Comment on above: Order Comment: Chase almonte Type: BLOOD SPECIMEN Ordering Facility: [facility] Address: [address] [place] [address] Result Comment: eAG: (Estimated average glucose) is a calculated value from HgbA1c and is truck sales representative of the average blood glucose level in the last 2-3 month period. Performed By: #### 5 8410-2 #### [facility] CLIA [id number] [address] [place] [address] [place] HbA1c (Bld) [Mass fraction] 5.9 % High 4.3-5.6 [facility] Comment on above: Order Comment: Chase almonte Type: BLOOD SPECIMEN Ordering Facility: [facility] Address: [address] [place] [address] Result Comment: Amer ican Diabetes Association guidelines indicate that patients with HgbA1c in the range 5.7-6.4% are at increased risk for development of diabetes, and intervention by lifestyle modification may be beneficial. HgbA1c greater or equal to 6.5% is considered diagnostic of diabetes. Performed By: #### 5 8410-2 #### [facility] CLIA [id number] [address] [place] [address] OF [facility] 08-09-2024 CNPN Telephone (AGINTMLW) -------- KEYA MAGANA ([id number]) 1956 F Date Time Provider Department 08/09/24 АЛЕКСАНДР BLANCO During your visit today, we recorded the following information about you: Александр Blanco, CORNEL.TEMPLATE WORKER 08/09/2024 8:43 AM Signed Pt due for colonguard screening Bianca Linder MA 08/10/2024 11:31 AM Signed Patient is informed Bianca Linder MA Allergies As of Date: 08/09/2024 Noted Allergy Reaction AUGMENTIN (AMOXICILLIN-POT CLAVUL*12/02/2014 11 - Vomiting BEE STING 10/09/2009 7 - Swelling LIPITOR (ATORVASTATIN CALCIUM) 10/09/2009 Comments: severe muscle pain orange food dye [Other] 08/31/2007 4 - Hives Date Reviewed: 11/23/2022 Reviewed by: Juhi Santos LPN - Fully Assessed Reason for Visit: Orders [681] Cmt: Cologuard Primary Visit Diagnosis:Colon cancer screening [Z12.11] Order(s):COLOGUARD [SQCOLGRD] Order #: [id number] Prescriptions as of 08/10/2024 - TURMERIC ORAL Take 1,000 mg by mouth once daily. - Multivitamin capsule Take 1 capsule by mouth once daily. - ibuprofen (ADVIL) 200 mg ORAL Tab Take one(1) to two(2) tablets every two(2) hours as needed for pain. Problem List As Of Date 08/09/2024 Noted Resolved Hyperlipemia [E78.5] 10/09/2009 Herpes Zoster [B02.9] 10/09/2009 Mastodynia [N64.4] 01/24/2011 Abnormal mammogram, unspecified [R92.8] 04/06/2012 Encounter Status:Closed by АЛЕКСАНДР BLANCO on 08/09/24 [facility] 07-15-2024 [facility] Telephone (DARSHANA) -------- KEYA MAGANA ([id number]) 1956 F Date Time Provider Department 07/15/24 АЛЕКСАНДР BLANCO During your visit today, we recorded the following information about you: Bianca Linder MA 07/15/2024 9:24 AM Signed ----- Message from Александр Blanco APRN.TEMPLATE WORKER sent at 07/14/2024 5:04 PM EDT ----- Creatine is now normal Bianca Linder MA 07/15/2024 9:27 AM Signed Patient is informed, and she was wondering if she could get her A1c checked due to her last blood sugar reading, but she is out of town so she won't be able to get it done till mid july CHANEL Mcbride Charlene M, APRN.WILLY 07/15/2024 1:47 PM Signed Order placed Александр Blanco APRN.WILLY 07/15/2024 1:47 PM Signed Addended by: АЛЕКСАНДР BLANCO on: 07/15/2024 01:47 PM Modules accepted: Gladis Ortiz LPN 07/15/2024 4:41 PM Signed Call placed to pt, advised of the recommendations in this note. Pt verbalized an understanding. Gladis Rosa LPN Allergies As of Date: 07/15/2024 Noted Allergy Reaction AUGMENTIN (AMOXICILLIN-POT CLAVUL*12/02/2014 11 - Vomiting BEE STING 10/09/2009 7 - Swelling LIPITOR (ATORVASTATIN CALCIUM) 10/09/2009 Comments: severe muscle pain orange food dye [Other] 08/31/2007 4 - Hives Date Reviewed: 11/23/2022 Reviewed by: Juhi Santos LPN - Fully Assessed Reason for Visit: Results [95] Primary Visit Diagnosis:Elevated blood sugar [R73.9] Order(s):HEMOGLOBIN A1C [RUWXT1U] Order #: [id number] FUTURE Prescriptions as of 07/15/2024 - TURMERIC ORAL Take 1,000 mg by mouth once daily. - Multivitamin capsule Take 1 capsule by mouth once daily. - ibuprofen (ADVIL) 200 mg ORAL Tab Take one(1) to two(2) tablets every two(2) hours as needed for pain. Problem List As Of Date 07/15/2024 Noted Resolved Hyperlipemia [E78.5] 10/09/2009 Herpes Zoster [B02.9] 10/09/2009 Mastodynia [N64.4] 01/24/2011 Abnormal mammogram, unspecified [R92.8] 04/06/2012 Encounter Status:Closed by BIANCA LINDER on 07/15/24 Normal [facility] Basic metabolic 2000 panelon 07-05-2024 Anion gap [Moles/Vol] 12 mmol/L Normal 8-15 [facility] Comment on above: Order Comment: Speci men Type: BLOOD SPECIMEN Ordering Facility: [facility] Address: [address] [place] [address] Performed By: #### 2 4321-2 #### [facility] CLIA [id number] [address] [place] [address] [place] Calcium [Mass/Vol] 9.9 mg/dL Normal 8.5-10.2 [facility] Comment on above: Order Comment: Speci men Type: BLOOD SPECIMEN Ordering Facility: [facility] Address: [address] [place] [address] Performed By: #### 2 4321-2 #### [facility] CLIA [id number] [address] [place] [address] [place] Chloride [Moles/Vol] 104 mmol/L Normal 98-107 [facility] Comment on above: Order Comment: Speci men Type: BLOOD SPECIMEN Ordering Facility: [facility] Address: [address] [place] [address] Performed By: #### 2 4321-2 #### [facility] CLIA [id number] [address] [place] [address] [place] CO2 [Moles/Vol] 22 mmol/L Normal 22-30 [facility] Comment on above: Order Comment: Speci men Type: BLOOD SPECIMEN Ordering Facility: [facility] Address: [address] [place] [address] Performed By: #### 2 4321-2 #### [facility] CLIA [id number] [address] [place] [address] [place] Creatinine [Mass/Vol] 0.88 mg/dL Normal 0.58-0.96 [facility] Comment on above: Order Comment: Chase almonte Type: BLOOD SPECIMEN Ordering Facility: [facility] Address: [address] [place] [address] Performed By: #### 2 4321-2 #### [facility] CLIA [id number] [address] [place] [address] OF [facility] Creatinine and Glomerular filtration rate.predicted panel (S/P/Bld) 71 mL/min/1.73m??? Normal >=60 [facility] Comment on above: Order Comment: Chase almonte Type: BLOOD SPECIMEN Ordering Facility: [facility] Address: [address] [place] [address] Result Comment: Juana mated Glomerular Filtration Rate (eGFR) is calculated using the 2020 CKD-EPI creatinine equation. This equation utilizes serum creatinine, sex, and age as parameters. The creatinine assay has traceable calibration to isotope dilution-mass spectrometry. Refer to KDIGO guidelines for clinical interpretation. In patients with unstable renal function, e.g. those with acute kidney injury, the eGFR may not accurately reflect actual GFR. Performed By: #### 2 4321-2 #### [facility] CLIA [id number] [address] [place] [address] [place] Glucose [Mass/Vol] 112 mg/dL High 74-99 [facility] Comment on above: Order Comment: Chase almonte Type: BLOOD SPECIMEN Ordering Facility: [facility] Address: [address] [place] [address] Result Comment: The [place] Diabetes Association (ADA) provides guidance for cutoff values for fasting glucose and random glucose. The ADA defines fasting as no caloric intake for at least 8 hours. Fasting plasma glucose results between 100 to 125 mg/dL indicate increased risk for diabetes (prediabetes). Fasting plasma glucose results greater than or equal to 126 mg/dL meet the criteria for diagnosis of diabetes. In the absence of unequivocal hyperglycemia, results should be confirmed by repeat testing. In a patient with classic symptoms of hyperglycemia or hyperglycemic crisis, random plasma glucose results greater than or equal to 200 mg/dL meet the criteria for diagnosis of diabetes. Reference: Standards of Medical Care in Diabetes 2016, [place] Diabetes Association. Diabetes Care. 2016.39(Suppl 1). Performed By: #### 2 4321-2 #### [facility] CLIA [id number] [address] [place] [address] [place] Potassium [Moles/Vol] 4.1 mmol/L Normal 3.7-5.1 [facility] Comment on above: Order Comment: Chase almonte Type: BLOOD SPECIMEN Ordering Facility: [facility] Address: [address] [place] [address] Performed By: #### 2 4321-2 #### [facility] CLIA [id number] [address] [place] [address] [place] Sodium [Moles/Vol] 138 mmol/L Normal 136-144 [facility] Comment on above: Order Comment: Chase almonte Type: BLOOD SPECIMEN Ordering Facility: [facility] Address: [address] [place] [address] Performed By: #### 2 4321-2 #### [facility] CLIA [id number] [address] [place] [address] [place] Urea nitrogen [Mass/Vol] 16 mg/dL Normal 7-21 [facility] Comment on above: Order Comment: Chase almonte Type: BLOOD SPECIMEN Ordering Facility: [facility] Address: [address] [place] [address] Performed By: #### 2 4321-2 #### [facility] CLIA [id number] [address] [place] [address] [place] Shanice 06-22-2024 JEANNETTE Telephone (AGINTMLW) -------- FACUNDO BAXTERKEYA DE LEON ([id number]) 1956 F Date Time Provider Department 06/22/24 АЛЕКСАНДР BLANCO During your visit today, we recorded the following information about you: Maia Bell MA 06/22/2024 6:43 AM Signed ----- Message from Maia Bell MA sent at 05/25/2024 10:22 AM EDT ----- creatinine minimally elevated. I. Will recheck in 4 wks. CHANEL Khan Donna, MA 06/23/2024 2:34 PM Signed Called pt left VM that she is due for labs Maia Bell MA Allergies As of Date: 06/22/2024 Noted Allergy Reaction AUGMENTIN (AMOXICILLIN-POT CLAVUL*12/02/2014 11 - Vomiting BEE STING 10/09/2009 7 - Swelling LIPITOR (ATORVASTATIN CALCIUM) 10/09/2009 Comments: severe muscle pain orange food dye [Other] 08/31/2007 4 - Hives Date Reviewed: 11/23/2022 Reviewed by: Juhi Santos LPN - Fully Assessed Reason for Visit: Orders [681] Primary Visit Diagnosis:Elevated serum creatinine [R79.89] Order(s):BASIC METABOLIC PANEL [SQBMP] Order #: [id number] FUTURE Prescriptions as of 06/23/2024 - TURMERIC ORAL Take 1,000 mg by mouth once daily. - Multivitamin capsule Take 1 capsule by mouth once daily. - ibuprofen (ADVIL) 200 mg ORAL Tab Take one(1) to two(2) tablets every two(2) hours as needed for pain. Problem List As Of Date 06/22/2024 Noted Resolved Hyperlipemia [E78.5] 10/09/2009 Herpes Zoster [B02.9] 10/09/2009 Mastodynia [N64.4] 01/24/2011 Abnormal mammogram, unspecified [R92.8] 04/06/2012 Encounter Status:Closed by MAIA BELL on 06/23/24 [facility] CNPSally 05-25-2024 CNPN Telephone (AGINTMLW) -------- FACUNDO KEYA WARREN ([id number]) 1956 F Date Time Provider Department 05/25/24 АЛЕКСАНДР BLANCO During your visit today, we recorded the following information about you: Александр Blanco APRN.CNP 05/25/2024 6:34 AM Signed Let pt know her mammogram is negative. 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 Also creatinine minimally elevated. Inquire if takes any nsaids. If so she should stop. Will recheck in 4 wks. Lipids all levels elevated. I would recommend starting a statin. Maia Bell MA 05/25/2024 10:23 AM Signed Called pt let her know the results pt stated she is not interested in a Statin she will work on her diet she dose have family history of cholesterol Pt dose take NSAIDS instructed to stop taking reminder placed for 4 week recheck Maia Bell MA Allergies As of Date: 05/25/2024 Noted Allergy Reaction AUGMENTIN (AMOXICILLIN-POT CLAVUL*12/02/2014 11 - Vomiting BEE STING 10/09/2009 7 - Swelling LIPITOR (ATORVASTATIN CALCIUM) 10/09/2009 Comments: severe muscle pain orange food dye [Other] 08/31/2007 4 - Hives Date Reviewed: 11/23/2022 Reviewed by: Juhi Santos LPN - Fully Assessed Reason for Visit: Results [95] Cmt: Mammogram Prescriptions as of 05/25/2024 - TURMERIC ORAL Take 1,000 mg by mouth once daily. - Multivitamin capsule Take 1 capsule by mouth once daily. - ibuprofen (ADVIL) 200 mg ORAL Tab Take one(1) to two(2) tablets every two(2) hours as needed for pain. Problem List As Of Date 05/25/2024 Noted Resolved Hyperlipemia [E78.5] 10/09/2009 Herpes Zoster [B02.9] 10/09/2009 Mastodynia [N64.4] 01/24/2011 Abnormal mammogram, unspecified [R92.8] 04/06/2012 Encounter Status:Closed by MAIA BELL on 05/25/24 Normal [facility] 25(OH)D3 [facility] 2023 25-hydroxyvitamin D3 [Mass/Vol] 32.1 ng/mL Normal 31.0-80.0 [facility] Comment on above: Order Comment: Speci men Type: BLOOD SPECIMEN Ordering Facility: [facility] Address: [address] [place] [address] Performed By: #### 1 989-3 #### [facility] CLIA [id number] [address] [place] [address] [place] CBC panel Auto (Bld)on 05-24 Erythrocyte distribution width (RBC) [Ratio] 13.9 % Normal 11.5-15.0 [facility] Comment on above: Order Comment: Speci men Type: BLOOD SPECIMEN Ordering Facility: [facility] Address: [address] [place] [address] Performed By: #### 5 8410-2 #### [facility] CLIA [id number] [address] [place] [address] [place] Hematocrit (Bld) [Volume fraction] 41.9 % Normal 36.0-46.0 [facility] Comment on above: Order Comment: Speci men Type: BLOOD SPECIMEN Ordering Facility: [facility] Address: [address] [place] [address] Performed By: #### 5 8410-2 #### [facility] CLIA [id number] [address] [place] [address] [place] Hemoglobin (Bld) [Mass/Vol] 13.7 g/dL Normal 11.5-15.5 [facility] Comment on above: Order Comment: Speci men Type: BLOOD SPECIMEN Ordering Facility: [facility] Address: [address] [place] [address] Performed By: #### 5 8410-2 #### [facility] CLIA [id number] [address] [place] [address] [place] MCH (RBC) [Entitic mass] 29.7 pg Normal 26.0-34.0 [facility] Comment on above: Order Comment: Speci men Type: BLOOD SPECIMEN Ordering Facility: [facility] Address: [address] [place] [address] Performed By: #### 5 8410-2 #### [facility] CLIA [id number] [address] [place] [address] [place] MCHC (RBC) [Mass/Vol] 32.7 g/dL Normal 30.5-36.0 [facility] Comment on above: Order Comment: Speci men Type: BLOOD SPECIMEN Ordering Facility: [facility] Address: [address] [place] [address] Performed By: #### 5 8410-2 #### [facility] CLIA [id number] [address] [place] [address] [place] MCV (RBC) [Entitic vol] 90.7 fL Normal 80.0-100.0 [facility] Comment on above: Order Comment: Speci men Type: BLOOD SPECIMEN Ordering Facility: [facility] Address: [address] [place] [address] Performed By: #### 5 8410-2 #### [facility] CLIA [id number] [address] [place] [address] [place] Nucleated RBC (Bld) [#/Vol] 10*3/uL Normal <0.01 [facility] Comment on above: Order Comment: Speci men Type: BLOOD SPECIMEN Ordering Facility: [facility] Address: [address] [place] [address] Performed By: #### 5 8410-2 #### [facility] CLIA [id number] [address] [place] [address] [place] Platelet mean volume (Bld) [Entitic vol] 11.6 fL Normal 9.0-12.7 [facility] Comment on above: Order Comment: Speci men Type: BLOOD SPECIMEN Ordering Facility: [facility] Address: [address] [place] [address] Performed By: #### 5 8410-2 #### [facility] CLIA [id number] [address] [place] [address] [place] Platelets (Bld) [#/Vol] 266 10*3/uL Normal 150-400 [facility] Comment on above: Order Comment: Speci men Type: BLOOD SPECIMEN Ordering Facility: [facility] Address: [address] [place] [address] Performed By: #### 5 8410-2 #### [facility] CLIA [id number] [address] [place] [address] [place] RBC (Bld) [#/Vol] 4.62 10*6/uL Normal 3.90-5.20 [facility] Comment on above: Order Comment: Speci men Type: BLOOD SPECIMEN Ordering Facility: [facility] Address: [address] [place] [address] Performed By: #### 5 8410-2 #### [facility] CLIA [id number] [address] [place] [address] [place] WBC (Bld) [#/Vol] 5.77 10*3/uL Normal 3.70-11.00 [facility] Comment on above: Order Comment: Speci men Type: BLOOD SPECIMEN Ordering Facility: [facility] Address: [address] [place] [address] Performed By: #### 5 8410-2 #### [facility] CLIA [id number] [address] [place] [address] [place] Comprehensive metabolic 2000 panelon 05-24-2024 Albumin [Mass/Vol] 4.5 g/dL Normal 3.9-4.9 [facility] Comment on above: Order Comment: Speci men Type: BLOOD SPECIMEN Ordering Facility: [facility] Address: [address] [place] [address] Performed By: #### 2 4323-8, 09057-6, 3016-3 #### [facility] CLIA [id number] [address] [place] [address] [place] ALP [Catalytic activity/Vol] 97 U/L Normal 34-123 [facility] Comment on above: Order Comment: Speci men Type: BLOOD SPECIMEN Ordering Facility: [facility] Address: [address] [place] [address] Performed By: #### 2 4323-8, 17864-4, 3016-3 #### [facility] CLIA [id number] [address] [place] [address] [place] ALT [Catalytic activity/Vol] 31 U/L Normal 7-38 [facility] Comment on above: Order Comment: Speci men Type: BLOOD SPECIMEN Ordering Facility: [facility] Address: [address] [place] [address] Performed By: #### 2 4323-8, 90466-3, 3016-3 #### [facility] CLIA [id number] [address] [place] [address] [place] Anion gap [Moles/Vol] 13 mmol/L Normal 8-15 [facility] Comment on above: Order Comment: Speci men Type: BLOOD SPECIMEN Ordering Facility: [facility] Address: [address] [place] [address] Performed By: #### 2 4323-8, 59758-7, 3015-3 #### [facility] CLIA [id number] [address] [place] [address] [place] AST [Catalytic activity/Vol] 31 U/L Normal 13-35 [facility] Comment on above: Order Comment: Speci men Type: BLOOD SPECIMEN Ordering Facility: [facility] Address: [address] [place] [address] Performed By: #### 2 4323-8, 85009-2, 3015-3 #### [facility] CLIA [id number] [address] [place] [address] [place] Bilirubin [Mass/Vol] 0.9 mg/dL Normal 0.2-1.3 [facility] Comment on above: Order Comment: Speci men Type: BLOOD SPECIMEN Ordering Facility: [facility] Address: [address] [place] [address] Performed By: #### 2 4323-8, 50434-7, 3015-3 #### [facility] CLIA [id number] [address] [place] [address] [place] Calcium [Mass/Vol] 10.0 mg/dL Normal 8.5-10.2 [facility] Comment on above: Order Comment: Speci men Type: BLOOD SPECIMEN Ordering Facility: [facility] Address: [address] [place] [address] Performed By: #### 2 4323-8, 32654-3, 3 #### [facility] CLIA [id number] [address] [place] [address] [place] Chloride [Moles/Vol] 104 mmol/L Normal 98-107 [facility] Comment on above: Order Comment: Speci men Type: BLOOD SPECIMEN Ordering Facility: [facility] Address: [address] [place] [address] Performed By: #### 2 4323-8, 15991-9, 3016-3 #### [facility] CLIA [id number] [address] [place] [address] [place] CO2 [Moles/Vol] 23 mmol/L Normal 22-30 [facility] Comment on above: Order Comment: Speci men Type: BLOOD SPECIMEN Ordering Facility: [facility] Address: [address] [place] [address] Performed By: #### 2 4323-8, 90198-3, 3016-01 #### [facility] CLIA [id number] [address] [place] [address] [place] Creatinine [Mass/Vol] 0.98 mg/dL High 0.58-0.96 [facility] Comment on above: Order Comment: Speci men Type: BLOOD SPECIMEN Ordering Facility: [facility] Address: [address] [place] [address] Performed By: #### 2 4323-8, 10655-7, 3016-01 #### [facility] CLIA [id number] [address] [place] [address] [place] Creatinine and Glomerular filtration rate.predicted panel (S/P/Bld) 63 mL/min/1.73m??? Normal >=60 [facility] Comment on above: Order Comment: Speci men Type: BLOOD SPECIMEN Ordering Facility: [facility] Address: [address] [place] [address] Result Comment: Juana mated Glomerular Filtration Rate (eGFR) is calculated using the 2020 CKD-EPI creatinine equation. This equation utilizes serum creatinine, sex, and age as parameters. The creatinine assay has traceable calibration to isotope dilution-mass spectrometry. Refer to KDIGO guidelines for clinical interpretation. In patients with unstable renal function, e.g. those with acute kidney injury, the eGFR may not accurately reflect actual GFR. Performed By: #### 2 4323-8, 56024-7, 3016-01 #### [facility] CLIA [id number] [address] [place], [place] [id number] [place] Glucose [Mass/Vol] 115 mg/dL High 74-99 [facility] Comment on above: Order Comment: Speci men Type: BLOOD SPECIMEN Ordering Facility: [facility] Address: [address] [place] [address] Result Comment: The [place] Diabetes Association (ADA) provides guidance for cutoff values for fasting glucose and random glucose. The ADA defines fasting as no caloric intake for at least 8 hours. Fasting plasma glucose results between 100 to 125 mg/dL indicate increased risk for diabetes (prediabetes). Fasting plasma glucose results greater than or equal to 126 mg/dL meet the criteria for diagnosis of diabetes. In the absence of unequivocal hyperglycemia, results should be confirmed by repeat testing. In a patient with classic symptoms of hyperglycemia or hyperglycemic crisis, random plasma glucose results greater than or equal to 200 mg/dL meet the criteria for diagnosis of diabetes. Reference: Standards of Medical Care in Diabetes 2016, [place] Diabetes Association. Diabetes Care. 2016.39(Suppl 1). Performed By: #### 2 4323-8, 37296-0, 6-3 #### [facility] CLIA [id number] [address] [place] [address] [place] Potassium [Moles/Vol] 4.4 mmol/L Normal 3.7-5.1 [facility] Comment on above: Order Comment: Chase men Type: BLOOD SPECIMEN Ordering Facility: [facility] Address: [address] [place] [address] Performed By: #### 2 4323-8, 16786-5, 3015-3 #### [facility] CLIA [id number] [address] [place] [address] [place] Protein [Mass/Vol] 7.2 g/dL Normal 6.3-8.0 [facility] Comment on above: Order Comment: Speci men Type: BLOOD SPECIMEN Ordering Facility: [facility] Address: [address] [place] [address] Performed By: #### 2 4323-8, 95046-0, 6-3 #### [facility] CLIA [id number] [address] [place] [address] [place] Sodium [Moles/Vol] 140 mmol/L Normal 136-144 [facility] Comment on above: Order Comment: Speci men Type: BLOOD SPECIMEN Ordering Facility: [facility] Address: [address] [place] [address] Performed By: #### 2 4323-8, 66138-4, 3016-3 #### [facility] LAB CLIA [id number] [address] [place] [address] [place] Urea nitrogen [Mass/Vol] 19 mg/dL Normal 7-21 [facility] Comment on above: Order Comment: Sylviai men Type: BLOOD SPECIMEN Ordering Facility: [facility] Address: [address] [place] [address] Performed By: #### 2 4323-8, 42214-6, 3016-3 #### [facility] CLIA [id number] [address] [place] [address] [place] HCV Ab Ser Qlon 05-24-2024 HCV Ab Ql (S) Negative Normal Negative [facility] Comment on above: Order Comment: Chase almonte Type: BLOOD SPECIMEN Ordering Facility: [facility] Address: [address] [place] [address] Result Comment: The result suggests no evidence of active infection with Hepatitis C virus. Should recent infection be suspected, repeat testing may be considered 4-6 weeks after this draw. Performed By: #### 1 6128-1 #### [facility] CLIA [id number] [address] [place] [address] [place] Lipid 1996 panelon 4 Cholesterol [Mass/Vol] 331 mg/dL High <200 [facility] Comment on above: Order Comment: Sylviai men Type: BLOOD SPECIMEN Ordering Facility: [facility] Address: [address] [place] [address] Result Comment: <200 mg/dL, Desirable 200-239 mg/dL, Borderline high >239 mg/dL, High Performed By: #### 2 4323-8, 33730-6, 6-3 #### [facility] CLIA [id number] [address] [place] [address] [place] Cholesterol in HDL [Mass/Vol] 52 mg/dL Normal >39 [facility] Comment on above: Order Comment: Chase gage Type: BLOOD SPECIMEN Ordering Facility: [facility] Address: [address] [place] [address] Result Comment: 40-5 9 mg/dL, Acceptable >59 mg/dL, High: Negative risk factor for coronary heart disease <40 mg/dL, Low: Positive risk factor for coronary heart disease Performed By: #### 2 4323-8, 64333-9, 3015-3 #### [facility] CLIA [id number] [address] [place] [address] [place] Cholesterol in LDL [Mass/Vol] 241 mg/dL High <100 [facility] Comment on above: Order Comment: Chase almonte Type: BLOOD SPECIMEN Ordering Facility: [facility] Address: [address] [place] [address] Result Comment: <100 mg/dL, Optimal 100-129 mg/dL, Near optimal/above optimal 130-159 mg/dL, Borderline high 160-189 mg/dL, High >189 mg/dL, Very high Secondary prevention optimal LDL Cholesterol levels are recommended to be < 70 mg/dL Performed By: #### 2 4323-8, 87728-2, 6-3 #### [facility] CLIA [id number] [address] [place] [address] [place] Cholesterol in LDL/Cholesterol in HDL [Mass ratio] 4.63 {ratio} High <2.54 [facility] Comment on above: Order Comment: Sylviayue almonte Type: BLOOD SPECIMEN Ordering Facility: [facility] Address: [address] [place] [address] Result Comment: Refe rence: 1. National Cholesterol Education Program ATP III Guideline At-A-Glance Quick Desk Reference: National Heart, Lung, and Blood Ellinger. National Institutes of Health. 2001: NIH Publication No. 01-3305. 2. An International Atherosclerosis Society position paper: global recommendations for the management of dyslipidemia: executive summary, Atherosclerosis. 2014: 232(2):410-413. Performed By: #### 2 4323-8, 53143-6, 3015-3 #### [facility] CLIA [id number] [address] [place] [address] [place] Cholesterol in VLDL [Mass/Vol] 38 mg/dL High <30 [facility] Comment on above: Order Comment: Speci men Type: BLOOD SPECIMEN Ordering Facility: [facility] Address: [address] [place] [address] Performed By: #### 2 4323-8, 80927-0, 3015-3 #### [facility] CLIA [id number] [address] [place] [address] [place] Cholesterol non HDL [Mass/Vol] 279 mg/dL High <130 [facility] Comment on above: Order Comment: Sylviai men Type: BLOOD SPECIMEN Ordering Facility: [facility] Address: [address] [place] [address] Result Comment: <130 mg/dL, Optimal 130-159 mg/dL, Near optimal/above optimal 160-189 mg/dL, Borderline high 190-219 mg/dL, High >219 mg/dL, Very high Secondary prevention optimal non HDL Cholesterol levels are recommended to be <100 mg/dL Performed By: #### 2 4323-8, 24453-5, 3015-3 #### [facility] CLIA [id number] [address] [place] [address] [place] Cholesterol.total/ Cholesterol in HDL [Mass ratio] 6.37 {ratio} High <5.10 [facility] Comment on above: Order Comment: Chase men Type: BLOOD SPECIMEN Ordering Facility: [facility] Address: [address] [place] [address] Performed By: #### 2 4323-8, 90488-5, 3015-3 #### [facility] CLIA [id number] [address] [place] [address] [place] FASTING TIME 12 hrs Normal [facility] Comment on above: Order Comment: Speci men Type: BLOOD SPECIMEN Ordering Facility: [facility] Address: [address] [place] [address] Performed By: #### 2 4323-8, 31057-7, 3016-3 #### [facility] CLIA [id number] [address] [place] [address] [place] Triglyceride [Mass/Vol] 190 mg/dL High <150 [facility] Comment on above: Order Comment: Speci men Type: BLOOD SPECIMEN Ordering Facility: [facility] Address: [address] [place] [address] Result Comment: <150 mg/dL, Normal 150-199 mg/dL, Borderline high 200-499 mg/dL, High >499 mg/dL, Very high Performed By: #### 2 4323-8, 73380-2, 3015-3 #### [facility] CLIA [id number] [address] [place] [address] [place] TSH SerPl-aCncon 05-24-2024 TSH Qn 1.790 m[IU]/L Normal 0.270-4.200 [facility] Comment on above: Order Comment: Speci men Type: BLOOD SPECIMEN Ordering Facility: [facility] Address: [address] [place] [address] Performed By: #### 2 4323-8, 03024-9, 3015-3 #### [facility] CLIA [id number] [address] [place] [address] [place] SCRN MAMM (CAD)W/DUSTIN BILMimi n 05-21-2024 SCRN MAMM (CAD)W/DUSTIN BILAT [facility] Imaging Services [address] [place] [address] SCRN MAMM (CAD)W/DUSTINNick ETIENNE MR#: [id number] Acct: [id number] Name: KEYA LOREDO #: [id number] : 1956 F 68 From: Javad Reaves MD PCP: SILVIO Patterson Status: REG CLI Study: SCRN MAMM (CAD)W/DUSTIN BILAT Date of Exam: 04/25 07/17 Exam# [id number] Ordering Dr: Александр Blanco NP, NP -Che [id number] MAMMOGRAPHY - BILATERAL SCREENING 3-D TOMOSYNTHESIS REASON FOR EXAM: Female, 68 years old. SCREENING PERTINENT HISTORY: No significant family history. TECHNIQUE: 2-D mammograms and 3-D Tomosynthesis of the breast (s) were performed. CAD was performed. COMPARISON: 07/05/2022 FINDINGS: The breast composition is composed of scattered fibroglandular density. Scattered benign calcifications are seen. No dense spiculated masses or suspicious microcalcifications are identified. No architectural distortion is identified. There is no skin thickening or retraction. There has been no significant change since the prior study. No change in bilateral benign rodlike calcifications. BI/SCRN MAMM (CAD)W/DUSTIN BILAT IMPRESSION: No mammographic signs of malignancy. Routine yearly mammograms recommended. ASSESSMENT CATEGORY: BIRADS Category 2: Benign. A letter regarding these results will be sent to the patient by the facility within 30 days. FOLLOW UP RECOMMENDATION: Yearly follow up mammogram recommended. (A) Approximately 10% of breast cancers are not detected by mammography. A normal mammogram should not delay biopsy of a clinically suspicious abnormality. Electronically Signed: Javad Reaves MD at 16:12 EDT , CC: SILVIO Blanco Box Estimator: Signed Normal [facility] Vital Signs Date Time Vital Sign Value Performing Clinician Facility 05-19-2024 11:00-0400 Body height 172.7 cm Александр Blanco CRITICAL CARE SPECIALIST.TEMPLATE WORKER Work Phone: [facility] 05-19-2024 11:00-0400 Body mass index (BMI) [Ratio] 29.92 kg/m2 Александр Bella CRITICAL CARE SPECIALIST.TEMPLATE WORKER Work Phone: [facility] 05-19-2024 11:00-0400 Body temperature 98.2 [degF] Александр Bella CRITICAL CARE SPECIALIST.TEMPLATE WORKER Work Phone: [facility] 05-19-2024 11:00-0400 Body weight 89.27 kg Александр Bella CRITICAL CARE SPECIALIST.TEMPLATE WORKER Work Phone: [facility] 05-19-2024 11:00-0400 Diastolic blood pressure 78 mm[Hg] Александр Bella CRITICAL CARE SPECIALIST.TEMPLATE WORKER Work Phone: [facility] 05-19-2024 11:00-0400 Heart rate 77 /min Александр Bella CRITICAL CARE SPECIALIST.TEMPLATE WORKER Work Phone: [facility] 05-19-2024 11:00-0400 Respiratory rate 18 /min Александр Bella CRITICAL CARE SPECIALIST.TEMPLATE WORKER Work Phone: [facility] 05-19-2024 11:00-0400 SaO2% (BldA) [Mass fraction] 97 % Александр Bella CRITICAL CARE SPECIALIST.TEMPLATE WORKER Work Phone: [facility] 05-19-2024 11:00-0400 Systolic blood pressure 122 mm[Hg] Александр Bella CRITICAL CARE SPECIALIST.TEMPLATE WORKER Work Phone: [facility] 11-23-2022 12:40-0500 Body temperature 98.29 [degF] Sharlene Athy PA-C Work Phone: [facility] 11-23-2022 12:40-0500 Body weight 89.18 kg Sharlene Athy PA-C Work Phone: [facility] 11-23-2022 12:40-0500 Diastolic blood pressure 80 mm[Hg] Sharlene Athy PA-C Work Phone: [facility] 11-23-2022 12:40-0500 Heart rate 84 /min Sharlene Athy PA-C Work Phone: [facility] 11-23-2022 12:40-0500 Respiratory rate 18 /min Sharlenejuan Yeetim PA-C Work Phone: [facility] 11-23-2022 12:40-0500 SaO2% (BldA) [Mass fraction] 100 % Sharlenejuan Yeey PA-C Work Phone: [facility] 11-23-2022 12:40-0500 Systolic blood pressure 122 mm[Hg] Sharlene Joselitoy PA-C Work Phone: [facility] 11-12-2022 13:40-0500 Body temperature 98.91 [degF] Jennifer Praisler-Wood CRITICAL CARE SPECIALIST.TEMPLATE WORKER Work Phone: [facility] 11-12-2022 13:40-0500 Body weight 89.36 kg Jennifer Praisler-Wood CRITICAL CARE SPECIALIST.TEMPLATE WORKER Work Phone: [facility] 11-12-2022 13:40-0500 Diastolic blood pressure 92 mm[Hg] Jennifer Praisler-Wood CRITICAL CARE SPECIALIST.TEMPLATE WORKER Work Phone: [facility] 11-12-2022 13:40-0500 Heart rate 98 /min Jennifer Praisler-Wood CRITICAL CARE SPECIALIST.TEMPLATE WORKER Work Phone: [facility] 11-12-2022 13:40-0500 Respiratory rate 16 /min Jennifer Praisler-Wood CRITICAL CARE SPECIALIST.TEMPLATE WORKER Work Phone: [facility] 11-12-2022 13:40-0500 SaO2% (BldA) [Mass fraction] 96 % Jennifer Praisler-Wood CRITICAL CARE SPECIALIST.TEMPLATE WORKER Work Phone: [facility] 11-12-2022 13:40-0500 Systolic blood pressure 168 mm[Hg] Jennifer Praisler-Wood CRITICAL CARE SPECIALIST.TEMPLATE WORKER Work Phone: [facility] 07-11-2022 13:04-0400 Respiratory rate 16 /min [facility] Work Phone: 07-11-2022 11:49-0400 Body height 172.72 cm [facility] Work Phone: 07-11-2022 11:49-0400 Body mass index (BMI) [Ratio] 29.5 kg/m2 [facility] Work Phone: 07-11-2022 11:49-0400 Body temperature 97.2 [degF] [facility] Work Phone: 07-11-2022 11:49-0400 Body weight 87.99 kg [facility] Work Phone: 07-11-2022 11:49-0400 Diastolic blood pressure 107 mm[Hg] [facility] Work Phone: 07-11-2022 11:49-0400 Heart rate 73 /min [facility] Work Phone: 07-11-2022 11:49-0400 SaO2% (BldA) [Mass fraction] 100 % [facility] Work Phone: 07-11-2022 11:49-0400 Systolic blood pressure 157 mm[Hg] [facility] Work Phone: Encounters Encounter Date Encounter Type Care Provider Facility Start: 05-23-2025 ambulatory Александр Blanco REFUELING RAMP ATTENDANT Facil ity:[facility] Start: 05-18-2025 End: 05-19-2025 Follow-up encounter Александр Blanco APRN.CNP Work Phone: [facility] Start: 05-17-2025 End: 05-17-2025 ambulatory АЛЕКСАНДР BLANCO Facility:[facility] Start: 05-13-2025 End: 05-13-2025 Telephone encounter Александр Blanco APRN.TEMPLATE WORKER Work Phone: [address] [place] [address] Comment on above: Orders (Tita concetta [facility] called and needed SOTO Screening order. Faxed order to [phone] at 3:01 pm 05/13/25.) Start: 04-19-2025 End: 05-20-2025 ambulatory Александр Blanco APRN.CNP Work Phone: [facility] Comment on above: Mammo location and b lood work Start: 02-15-2025 End: 02-15-2025 Telephone encounter Александр Blanco APRN.TEMPLATE WORKER Work Phone: [facility] Start: 10-05-2024 End: 10-05-2024 Telephone encounter Александр Blanco APRN.TEMPLATE WORKER Work Phone: [facility] Comment on above: Results Start: 08-17-2024 End: 08-17-2024 Telephone encounter Александр Blanco APRN.TEMPLATE WORKER Work Phone: [facility] Comment on above: Results Start: 08-16-2024 End: 08-16-2024 ambulatory АЛЕКСАНДР BLANCO Facility:[facility] Start: 08-09-2024 End: 08-09-2024 ambulatory Amirah Santos MA [facility] Start: 08-09-2024 End: 08-09-2024 Patient encounter procedure Amirah Santos MA [facility] Comment on above: Population Health Na vigation Outreach (Cologuard Rescreens ) Start: 08-09-2024 End: 08-09-2024 Telephone encounter Александр Blanco APRN.TEMPLATE WORKER Work Phone: [facility] Comment on above: Orders (Cologuard ) Start: 07-15-2024 End: 07-15-2024 Telephone encounter Александр Blanco APRN.TEMPLATE WORKER Work Phone: [facility] Comment on above: Results Start: 07-05-2024 End: 07-05-2024 ambulatory АЛЕКСАНДР BLANCO Facility:[facility] Start: 06-22-2024 Telephone encounter Александр Blanco APRN.TEMPLATE WORKER Work Phone: [facility] Comment on above: Orders Start: 05-25-2024 Telephone encounter Александр Blanco APRN.TEMPLATE WORKER Work Phone: [facility] Comment on above: Results (Mammogram ) Start: 05-24-2024 End: 05-24-2024 ambulatory АЛЕКСАНДР BLANCO Facility:[facility] Start: 05-21-2024 End: 05-21-2024 ambulatory Александр Blanco REFUELING RAMP ATTENDANT Facility:[facility] Start: 05-19-2024 End: 05-19-2024 Patient encounter procedure Александр Blanco CRITICAL CARE SPECIALIST.TEMPLATE WORKER Work Phone: [facility] Comment on above: Swelling of lymph no de (Primary Dx); Encounter for medical examination to establish care; Screening for thyroid disorder; Screening for lipid disorders; Vitamin D deficiency; Encounter for screening for diabetes mellitus; Screening for deficiency anemia; Encounter for screening mammogram for breast cancer; Special screening examination for viral disease Start: 05-19-2024 End: 05-19-2024 Patient encounter status Александр Blanco CRITICAL CARE SPECIALIST.TEMPLATE WORKER Work Phone: [facility] Start: 05-11-2024 Telephone encounter Александр Blanco CRITICAL CARE SPECIALIST.TEMPLATE WORKER Work Phone: [facility] Comment on above: Lab Orders (The new patient requested blood work prior to her first appointment. ) Start: 07-03-2023 Telephone encounter Marsha wesley MD Work Phone: [facility] [place] Comment on above: Orders (Mammogram); Return Call Request Start: 11-23-2022 End: 11-23-2022 Patient encounter procedure Sharlene Drew PA-C Work Phone: [facility] Comment on above: Bronchitis (Primary Dx) Start: 11-12-2022 End: 11-12-2022 Patient encounter procedure Jennifer Sharma APRN.TEMPLATE WORKER Work Phone: [facility] Comment on above: Flu-like symptoms (P rimary Dx); Suspected COVID-19 virus infection Start: 07-25-2022 End: 07-25-2022 ambulatory [facility] Work Phone: Start: 07-25-2022 End: 07-25-2022 Patient encounter procedure [facility] Start: 07-11-2022 End: 07-11-2022 Emergency department patient visit [facility]-Emergency Department Start: 07-05-2022 End: 07-05-2022 Patient encounter procedure [facility]-Outpatient Breast Imaging Procedures Date Procedure Procedure Detail Performing Clinician Start: 05-17-2025 Lipid 1996 panel - S irene or Plasma Александр Blanco CRITICAL CARE SPECIALIST.WILLY Work Phone: Start: 05-24-2024 Lipid 1996 panel - S irene or Plasma Александр Blanco CRITICAL CARE SPECIALIST.WILLY Work Phone: Start: 07-25-2022 MRI of joint of lowe r extremity Start: 07-11-2022 Plain X-ray of shoulder Start: 07-05-2022 End: 07-05-2022 Screening mammography Start: 07-30-2013 Lipid 1996 panel - S irene or Plasma Александр Blanco CRITICAL CARE SPECIALIST.WILLY Work Phone: Start: 11-10-2007 Colonoscopy Jennifer Laurent CRITICAL CARE SPECIALIST.WILLY Work Phone: Plan of Treatment Date Care Activity Detail Author Start: 05-17-2030 Lipid panel Lipid Screening [facility] Start: 2030 RSV Vaccine (1 - 1-d ose 75+ series) RSV Vaccine (1 - 1-dose 75+ series) [facility] Start: 05-24-2029 Lipid panel Lipid Screening [facility] Start: 06-27-2028 Urine microalbumin profile DTaP,Tdap,Td Vaccine (2 - Tdap) [facility] Start: 05-17-2028 Diabetes Screening Diabetes Screenin [facility] Start: 09-24-2027 Screening for malign ant neoplasm of colon [facility] Start: 08-16-2027 Diabetes Screening Diabetes Screenin [facility] Start: 07-05-2027 Diabetes Screening Diabetes Screenin [facility] Start: 05-24-2027 Diabetes Screening Diabetes Screenin [facility] Start: 06-23-2025 End: 06-23-2025 Patient encounter procedure 06/23/2025 10:00 AM EDT Office Visit [facility] [address] [place] [address] Александр Blanco CRITICAL CARE SPECIALIST.TEMPLATE WORKER [address] [place] [address] [facility] Comment on above: Wellness Start: 05-19-2025 Covid-19 Vaccine () Covid-19 Vaccine () [facility] Comment on above: Postponed from 07/25 (Declined at this time) Start: 05-19-2025 Pneumococcal Vaccine : 50+ (1 of 1 - PCV) Pneumococcal Vaccine: 50+ (1 of 1 - PCV) [facility] Comment on above: Postponed from 04/08 (Declined at this time) Start: 05-19-2025 Pneumococcal Vaccine : 65+ (1 of 1 - PCV) Pneumococcal Vaccine: 65+ (1 of 1 - PCV) [facility] Comment on above: Postponed from 04/08 (Declined at this time) Start: 05-19-2025 RSV Vaccine (1 - 1-d ose 60+ series) RSV Vaccine (1 - 1-dose 60+ series) [facility] Comment on above: Postponed from 04/08 (Declined at this time) Start: 05-19-2025 Screening for osteoporosis Bone Density Screening [facility] Comment on above: Postponed from 04/08 (Declined at this time) Start: 05-19-2025 Shingrix Vaccine (1 of 2) Shingrix Vaccine (1 of 2) [facility] Comment on above: Postponed from 04/08 (Declined at this time) Start: 05-17-2025 End: 05-17-2025 ambulatory 05/17/2025 10:30 AM EDT Results Only [facility] [address] [place] [address] [facility] Start: 11-23-2024 Behavioral Health Screening Behavioral Health Screening [facility] Comment on above: Postponed from 11/24 (Declined at this time) Start: 08-29-2024 COLOGUARD (FIT-DNA) COLOGUARD (FIT-D NA) [facility] Start: 08-29-2024 Screening for malign ant neoplasm of colon [facility] Start: 07-25-2024 Covid-19 Vaccine (3 - 2023-24 season) Covid-19 Vaccine () [facility] Start: 07-25-2024 Covid-19 Vaccine () Covid-19 Vaccine () [facility] Start: 07-15-2024 End: 10-14-2024 Hemoglobin A1c in Blood HEMOGLOBIN A1C Lab Routine Elevated blood sugar Expected: 07/15/2024, Expires: 10/14/2024 [facility] Work Phone: Comment on above: Expected: 07/15/2024 , Expires: 10/14/2024 Start: 06-22-2024 End: 09-21-2024 Basic metabolic 2000 panel - Serum or Plasma BASIC METABOLIC PANEL Lab Routine Elevated serum creatinine Expected: 06/22/2024, Expires: 09/21/2024 [facility] Work Phone: Comment on above: Expected: 06/22/2024 , Expires: 09/21/2024 Start: 05-19-2024 End: 08-18-2024 25-hydroxyvitamin D3 [Mass/volume] in Serum or Plasma VITAMIN D 25 HYDROXY Lab Routine Vitamin D deficiency Expected: 05/19/2024, Expires: 08/18/2024 [facility] Comment on above: Expected: 05/19/2024 , Expires: 08/18/2024 Start: 05-19-2024 End: 08-18-2024 CBC panel - Blood by Automated count COMPLETE BLOOD COUNT Lab Routine Screening for deficiency anemia Expected: 05/19/2024, Expires: 08/18/2024 [facility] Work Phone: Comment on above: Expected: 05/19/2024 , Expires: 08/18/2024 Start: 05-19-2024 End: 08-18-2024 Comprehensive metabolic 2000 panel - Serum or Plasma COMPREHENSIVE METABOLIC PANEL Lab Routine Encounter for screening for diabetes mellitus Expected: 05/19/2024, Expires: 08/18/2024 [facility] Comment on above: Expected: 05/19/2024 , Expires: 08/18/2024 Start: 05-19-2024 End: 08-18-2024 Hepatitis C virus Ab [Presence] in Serum HEPATITIS C ANTIBODY IA WITH CONFIRMATION Lab Routine Special screening examination for viral disease Expected: 05/19/2024, Expires: 08/18/2024 [facility] Comment on above: Expected: 05/19/2024 , Expires: 08/18/2024 Start: 05-19-2024 End: 08-18-2024 Lipid 1996 panel - Serum or Plasma LIPID PANEL BASIC Lab Routine Screening for lipid disorders Expected: 05/19/2024, Expires: 08/18/2024 [facility] Comment on above: Expected: 05/19/2024 , Expires: 08/18/2024 Start: 05-19-2024 End: 08-18-2024 Thyrotropin [Units/volume] in Serum or Plasma THYROID STIMULATING HORMONE Lab Routine Screening for thyroid disorder Expected: 05/19/2024, Expires: 08/18/2024 [facility] Comment on above: Expected: 05/19/2024 , Expires: 08/18/2024 Start: 05-19-2024 End: 05-19-2024 Patient encounter procedure 05/19/2024 11:20 AM EDT Office Visit [facility] [address] [place] [address] Александр Blanco, CRITICAL CARE SPECIALIST.TEMPLATE WORKER [address] [place] [address] REFUELING RAMP ATTENDANT ALONSO ER F/U SWOLLEN LYMPH NODES/PT WOULD LIKE BLOOD WORK [facility] Comment on above: REFUELING RAMP ATTENDANT ALONSO ER F/U SW OLLEN LYMPH NODES/PT WOULD LIKE BLOOD WORK Start: 11-24-2023 Advance Directive Discussion Advance Directive Discussion [facility] Start: 11-24-2023 Behavioral Health Screening Behavioral Health Screening [facility] Start: 07-25-2023 Covid-19 Vaccine () Covid-19 Vaccine () [facility] Start: 07-05-2023 Mammography MAMMOGRAM [facility] Start: 07-05-2023 Screening for malign ant neoplasm of breast Mammogram Screening [facility] Start: 11-24-2022 ADVANCE DIRECTIVE DISCUSSION ADVANCE DIRECTIVE DISCUSSION [facility] Start: 11-24-2022 DEPRESSION ASSESSMENT DEPRESSION ASS ESSMENT [facility] Start: 11-12-2022 End: 11-26-2022 Influenza virus A and B RNA and SARS-CoV-2 (COVID-19) N gene panel - Respiratory specimen by HARISH with probe detection [facility] Work Phone: Comment on above: Expected: 11/12/2022 , Expires: 11/26/2022 Start: 11-24-2021 ADVANCE DIRECTIVE DISCUSSION ADVANCE DIRECTIVE DISCUSSION [facility] Start: 11-24-2021 DEPRESSION ASSESSMENT DEPRESSION ASS ESSMENT [facility] Start: 08-30-2021 COLORECTAL CANCER SCREENING COLORECTAL CANCER SCREENING [facility] Start: 08-30-2021 Screening for malign ant neoplasm of colon Colorectal Cancer Screening [facility] Start: 06-08-2021 COVID-19 VACCINE (3 - Booster for Pfizer series) COVID-19 VACCINE (3 - Booster for Pfizer series) [facility] Start: 06-08-2021 COVID-19 VACCINE (3 - Pfizer series) COVID-19 VACCINE (3 - Pfizer series) [facility] Start: 01-17-2021 Diabetes Screening Diabetes Screenin g [facility] Start: 2020 BONE DENSITY BONE DENSITY [facility] Start: 2020 Pneumococcal Vaccine : 65+ (1 of 1 - PCV) Pneumococcal Vaccine: 65+ (1 of 1 - PCV) [facility] Start: 2020 PNEUMOCOCCAL: 65+ (1 - PCV) PNEUMOCOCCAL: 65+ (1 - PCV) [facility] Start: 2020 Screening for osteoporosis Bone Density Screening [facility] Start: 03-24-2020 Medicare Annual Well ness Visit Medicare Annual Wellness Visit [facility] Start: 07-30-2018 Lipid panel Lipid Screening [facility] Start: 07-30-2018 LIPID SCREEN LIPID SCREEN [facility] Start: 11-10-2017 Colonoscopy COLONOSCOPY [facility] Start: 11-10-2017 Screening for malign ant neoplasm of colon Colonoscopy [facility] Start: 10-21-2015 DIABETES SCREEN DIABETES SCREEN [facility] Start: 2015 RSV Vaccine (1 - 1-d ose 60+ series) RSV Vaccine (1 - 1-dose 60+ series) [facility] Start: 11-10-2008 Screening for malign ant neoplasm of colon Colonoscopy [facility] Start: 2005 SHINGRIX VACCINE (1 of 2) SHINGRIX VACCINE (1 of 2) [facility] Start: 08-02-2003 Urine microalbumin profile [facility] Start: [address] COLONOGRAPHY [facility] Start: 2000 FECAL OCCULT BLOOD FECAL OCCULT BLOO D [facility] Start: 2000 Screening for malign ant neoplasm of colon [facility] Start: 2000 [facility] Start: 1973 Anxiety Screening Anxiety Screening [facility] Start: 1973 Depression Screening Depression Scre ening [facility] Start: 1973 HEPATIT[facility] Start: 1973 Hepatitis C screening Hepatitis C [facility] COLOGUARD COLOGUARD Lab Ro utine Colon cancer screening Ordered: 08/09/2024 [facility] Work Phone: Comment on above: Ordered: 08/09/2024 End: 06-18-2025 DBT Breast - bilateral screening SOTO SCREENING [facility] Radiology Routine Encounter for screening mammogram for breast cancer 1 Occurrences starting 05/19/2024 until 06/18/2025 [facility] Comment on above: 1 Occurrences starti ng 05/19/2024 until 06/18/2025 End: 05-19-2026 DBT Breast - bilateral screening SOTO SCREENING W [facility] Radiology Routine Encounter for screening mammogram for breast cancer 1 Occurrences starting 04/19/2025 until 05/19/2026 [facility] Work Phone: Comment on above: 1 Occurrences starti ng 04/19/2025 until 05/19/2026 Patient Education ED Shoulder Sprain [facility] Work Phone: Patient referral [facility] Work Phone: Immunizations Immunization Date Immunization Notes Care Provider Edgar hutchinson 06-27-2018 diphtheria, tetanus toxoids and pertussis vaccine Александр Blanco APRN.TEMPLATE WORKER Work Phone: [facility] 08-01-2003 tetanus and diphther ia toxoids, adsorbed, preservative free, for adult use (2 Lf of tetanus toxoid and 2 Lf of diphtheria toxoid) Jennifer Sharma APRN.TEMPLATE WORKER Work Phone: [facility] Work Phone: Payers Date Payer Category Payer Self-pay [id number] 2021 Private Health Insurance [id number] 2021 Private Health Insurance CLI [id number] 2020 Medicare [id number] 2020 Medicare [id number] Private Health Insurance [id number] Unknown [id number] Unknown [id number] Unknown [id number] Social History Date Type Detail Facility Start[facility] Work Phone: Start: 1956 Sex Assigned At Female [facility] Start: 11-12-2022 [facility] Work Phone: Start: 11-12-2022 Tobacco use and exposure Smokeless tobacco non-user [facility] Work Phone: Start: 11-12-2022 End: 05-19-2024 Alcohol intake Current non-drinker of alcohol (finding) [facility] Start: 1956 Sex Assigned At Not on file [facility] Start: 11-23-2022 End: 05-19-2024 History of Social function [facility] Start: 11-23-2022 End: 05-19-2024 Tobacco use panel [facility] Adult Depression Screening Assessment 0 [facility] Start: 05-13-2024 Gender identity Identifies as female gender (finding) [facility] Start: 05-13-2024 Sexual orientation Heterosexual (fin ding) [facility] Functional Status Date Assessment Result Facility 06-21-2015 Are you deaf, or do you have serious difficulty hearing No 06/21/2015 7:15 PM EDT Barbara Amor MA No [facility] 06-21-2015 Are you blind, or do you have serious difficulty seeing, even when wearing glasses No 06/21/2015 7:15 PM EDT Barbara Amor MA No [facility] 06-21-2015 Do you have serious difficulty walking or climbing stairs No 06/21/2015 7:15 PM EDT Barbara Amor MA No [facility] 06-21-2015 Do you have difficul ty dressing or bathing No 06/21/2015 7:15 PM EDT Barbara Amor MA No [facility] 06-21-2015 Because of a physica l, mental, or emotional condition, do you have difficulty doing errands alone such as visiting a physician's office or shopping No 06/21/2015 7:15 PM EDT Barbara Amor MA No [facility] Mental Status Date Assessment Result Facility 06-21-2015 Because of a physica l, mental, or emotional condition, do you have serious difficulty concentrating, remembering, or making decisions No 06/21/2015 7:15 PM EDT Barbara Amor MA No [facility] Clinical Notes 11-12-2022 to 05-19-2025 Telephone Encounter - Bianca Linder MA - 05/19/2025 11:13 AM EDTTelephone Encounter - Bianca Linder MA - 05/19/2025 11:13 AM EDTTelephone Encounter - Jackeline Schultz - 05/13/2025 3:04 PM EDT Note Date & Type Note Facility 05-19-2025 Telephone encounter Note Patient is informed and she will call to schedule Bianca Linder MA [facility] 05-19-2025 Miscellaneous Notes Patient is informed and she will call to schedule Bianca Linder MA ----- Message from Александр Blanco APRN.TEMPLATE WORKER sent at 05/18/2025 1:09 PM EDT ----- Pt is due for her yearly follow up. We will discuss her recent labs at her appt. Let her know her lipids have increased and we need to discuss management for this. Please have her schedule medicare wellness documented in this encounter [facility] 05-19-2025 Telephone encounter Note ----- Message from Александр Blanco APRN.TEMPLATE WORKER sent at 05/18/2025 1:09 PM EDT ----- Pt is due for her yearly follow up. We will discuss her recent labs at her appt. Let her know her lipids have increased and we need to discuss management for this. Please have her schedule medicare wellness [facility] 05-13-2025 Telephone encounter Note Faxed order to [facility] after Tita called and requested it from [facility]. Faxed at 3:01 pm on 05/13/25 to [phone]. Faxed was confirmed sent [facility] 05-13-2025 Miscellaneous Notes Faxed order to [facility] after Tita called and requested it from [facility]. Faxed at 3:01 pm on 05/13/25 to [phone]. Faxed was confirmed sent documented in this encounter [facility] 04-19-2025 Note Patient Outreach (AG INTMLW) KEYA MAGANA ([id number]) 1956 F Date Time Provider Department 04/19/25 АЛЕКСАНДР BLANCO AGINTMLW During your visit today, we recorded the following information about you: Allergies As of Date: 04/19/2025 Noted Allergy Reaction AUGMENTIN (AMOXICILLIN-POT CLAVUL*12/02/2014 11 - Vomiting BEE STING 10/09/2009 7 - Swelling LIPITOR (ATORVASTATIN CALCIUM) 10/09/2009 Comments: severe muscle pain orange food dye [Other] 08/31/2007 4 - Hives Date Reviewed: 11/23/2022 Reviewed by: Juhi Santos LPN - Fully Assessed Visit Diagnosis:Encounter for screening mammogram for breast cancer [Z12.31] Order(s):[facility] SCREENING [facility] [[id number]] Order #: [id number] FUTURE Prescriptions as of 05/20/2025 - TURMERIC ORAL Take 1,000 mg by mouth once daily. - Multivitamin capsule Take 1 capsule by mouth once daily. - ibuprofen (ADVIL) 200 mg ORAL Tab Take one(1) to two(2) tablets every two(2) hours as needed for pain. Problem List As Of Date 04/19/2025 Noted Resolved Hyperlipemia [E78.5] 10/09/2009 Herpes Zoster [B02.9] 10/09/2009 Mastodynia [N64.4] 01/24/2011 Abnormal mammogram, unspecified [R92.8] 04/06/2012 Encounter Status:Closed by Alere, PRODUSER on 05/20/25 [facility] 02-15-2025 Telephone encounter Note ----- Message from Bianca Medina MA sent at 08/18/2024 11:41 AM EDT ----- Recheck A1c in 6 months Bianca Linder MA [facility] 02-15-2025 Miscellaneous Notes ----- Message from Bianca Medina MA sent at 08/18/2024 11:41 AM EDT ----- Recheck A1c in 6 months Bianca Linder MA documented in this encounter [facility] 10-05-2024 Telephone encounter Note Patient informed of results. Saima Mosley MA [facility] 10-05-2024 Miscellaneous Notes Patient informed of results. Saima Mosley MA ----- Message from Александр Blanco APRN.TEMPLATE WORKER sent at 10/03/2024 5:29 PM EST ----- Cologuard negative documented in this encounter [facility] 10-05-2024 Telephone encounter Note ----- Message from Александр Blanco APRN.TEMPLATE WORKER sent at 10/03/2024 5:29 PM EST ----- Cologuard negative [facility] 08-17-2024 Telephone encounter Note No need for medication. She just needs to follow as reviewed below [facility] 08-17-2024 Miscellaneous Notes No need for medication. She just needs to follow as reviewed below Patient is informed and she would like to know if medication is needed yet or if she whould just wait in 3 months. She states that she does exercise a lot. Bianca Linder MA ----- Message from Александр Blanco APRN.TEMPLATE WORKER sent at 08/17/2024 7:05 AM EDT ----- Hgb A1c shows prediabetes. Please review low carb sugar diet, importance of maintaining a healthy weight and exercise to slow progression to diabetes documented in this encounter [facility] 08-17-2024 Telephone encounter Note Patient is informed and she would like to know if medication is needed yet or if she whould just wait in 3 months. She states that she does exercise a lot. Bianca Linder MA [facility] 08-17-2024 Telephone encounter Note ----- Message from Александр Blanco APRN.CNP sent at 08/17/2024 7:05 AM EDT ----- Hgb A1c shows prediabetes. Please review low carb sugar diet, importance of maintaining a healthy weight and exercise to slow progression to diabetes [facility] 08-09-2024 Telephone encounter Note Pt due for colonguard screening [facility] 08-09-2024 Miscellaneous Notes Pt due for colonguard screening documented in this encounter [facility] 08-09-2024 Note HNO ID: [id number] Author: AMIRAH SANTOS MA Service: ? Author Type: Director Pharmacovigilance Type: Progress Notes Filed: 08/09/2024 08:41 Note Text: POPULATION HEALTH NAVIGATION OUTREACH Action/FYI Contacted patient regarding Cologuard rescreening. Patient agreed to Cologuard and order pended and sent to PCP. Reason for Outreach Care Gap/HCC or Scheduling Wellness Visits Care Gaps due: Colorectal Cancer Screening Patient Contacted: Spoke to patient/parent/or legal guardian Patient identified by name and : Yes Care Gap/HCC/Scheduling Wellness actions taken: Patient scheduled/pended orders: Controlling Blood Pressure HCC related Navigation Signature: Amirah Santos MA August 09, 2024 8:30 AM [facility] 08-09-2024 History of Present illness Narrative POPULATION HEALTH NAVIGATION OUTREACH Action/FYI Contacted patient regarding Cologuard rescreening. Patient agreed to Cologuard and order pended and sent to PCP. Reason for Outreach Care Gap/HCC or Scheduling Wellness Visits Care Gaps due: Colorectal Cancer Screening Patient Contacted: Spoke to patient/parent/or legal guardian Patient identified by name and : Yes Care Gap/HCC/Scheduling Wellness actions taken: Patient scheduled/pended orders: Controlling Blood Pressure HCC related Navigation Signature: Amirah Santos MA August 09, 2024 8:30 AM documented in this encounter [facility] 08-09-2024 Note Patient Outreach (LOUIS MAYERS) FACUNDO KEYA WARREN ([id number]) 1956 F Date Time Provider Department 08/09/24 AMIRAH SANTOS During your visit today, we recorded the following information about you: Amirah Santos MA 08/09/2024 8:41 AM Signed POPULATION HEALTH NAVIGATION OUTREACH Action/FYI Contacted patient regarding Cologuard rescreening. Patient agreed to Cologuard and order pended and sent to PCP. Reason for Outreach Care Gap/HCC or Scheduling Wellness Visits Care Gaps due: Colorectal Cancer Screening Patient Contacted: Spoke to patient/parent/or legal guardian Patient identified by name and : Yes Care Gap/HCC/Scheduling Wellness actions taken: Patient scheduled/pended orders: Controlling Blood Pressure HCC related Navigation Signature: Amirah Santos MA August 09, 2024 8:30 AM Allergies As of Date: 08/09/2024 Noted Allergy Reaction AUGMENTIN (AMOXICILLIN-POT CLAVUL*12/02/2014 11 - Vomiting BEE STING 10/09/2009 7 - Swelling LIPITOR (ATORVASTATIN CALCIUM) 10/09/2009 Comments: severe muscle pain orange food dye [Other] 08/31/2007 4 - Hives Date Reviewed: 11/23/2022 Reviewed by: Juhi Santos LPN - Fully Assessed Reason for Visit: Population Health Navigation Outreach [3910] Cmt: Cologuard Rescreens Primary Visit Diagnosis:Colon cancer screening [Z12.11] Prescriptions as of 08/09/2024 - TURMERIC ORAL Take 1,000 mg by mouth once daily. - Multivitamin capsule Take 1 capsule by mouth once daily. - ibuprofen (ADVIL) 200 mg ORAL Tab Take one(1) to two(2) tablets every two(2) hours as needed for pain. Problem List As Of Date 08/09/2024 Noted Resolved Hyperlipemia [E78.5] 10/09/2009 Herpes Zoster [B02.9] 10/09/2009 Mastodynia [N64.4] 01/24/2011 Abnormal mammogram, unspecified [R92.8] 04/06/2012 Encounter Status:Closed by АЛЕКСАНДР BLANCO on 08/09/24 [facility] 07-15-2024 Note Addended by: АЛЕКСАНДР BLANCO on: 07/15/2024 01:47 PM Modules accepted: Orders [facility] 07-15-2024 Telephone encounter Note Order placed [facility] 07-15-2024 Miscellaneous Notes Addended by: АЛЕКСАНДР BLANCO on: 07/15/2024 01:47 PM Modules accepted: Orders Order placed Patient is informed, and she was wondering if she could get her A1c checked due to her last blood sugar reading, but she is out of town so she won't be able to get it done till july Bianca Linder MA ----- Message from Александр Blanco APRN.CNP sent at 07/14/2024 5:04 PM EDT ----- Creatine is now normal documented in this encounter [facility] 07-15-2024 Telephone encounter Note Patient is informed, and she was wondering if she could get her A1c checked due to her last blood sugar reading, but she is out of town so she won't be able to get it done till july Bianca Linder MA [facility] 07-15-2024 Telephone encounter Note ----- Message from Александр Blanco APRN.CNP sent at 07/14/2024 5:04 PM EDT ----- Creatine is now normal [facility] 06-23-2024 Telephone encounter Note Called pt left VM that she is due for labs Maia Bell MA [facility] 06-23-2024 Miscellaneous Notes Called pt left VM that she is due for labs Maia Bell MA ----- Message from Maia Bell MA sent at 05/25/2024 10:22 AM EDT ----- creatinine minimally elevated. I. Will recheck in 4 wks. Maia Bell MA documented in this encounter [facility] 06-22-2024 Telephone encounter Note ----- Message from Maia Bell MA sent at 05/25/2024 10:22 AM EDT ----- creatinine minimally elevated. I. Will recheck in 4 wks. 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 Also creatinine minimally elevated. Inquire if takes any nsaids. If so she should stop. Will recheck in 4 wks. Lipids all levels elevated. I would recommend starting a statin. Called pt let her know the mammogram results Maia Bell MA Let pt know her mammogram is negative. 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 Also creatinine minimally elevated. Inquire if takes any nsaids. If so she should stop. Will recheck in 4 wks. Lipids all levels elevated. I would recommend starting a statin. [facility] 05-25-2024 Telephone encounter Note Called pt let her know the mammogram results Maia Bell MA [facility] 05-25-2024 Telephone encounter Note Let pt know her mammogram is negative. Follow up one year [facility] 05-19-2024 History of Present illness Narrative This note was created using enGreet. Subjective Keya Warren is a 68 year old female here today for follow up after [facility] ED on 04/24/24. No Pcp. She went to ER with complaints of RHODES x 5 days. Denied thunger clap, dizziness, lightheadedness, blurry vision. Mild light sensitivity. Denies trauma. Tried ibuprofen without relief. Hx migraines. She did not feel it was a migraine. She reported bumps on back of her neck. No red flag symptoms neurologically intact. Negative CT brain. She was given rx for hydrocodone and MVI. She was not given an antibiotic. States she got her antibiotic from a friend who is a physician. She took this for 12 days. She reports back of neck remains tender to touch, nodules have improved. She reports RHODES resolved after taking antibiotic. She would like to have lab work completed. She would [facility] to stay within [facility] but [place] is not taking any new patients. She reports she has not have labs in years. She lives between [facility] and [place] throughout the year. She continues to work and travels. 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 CT brain 04/24/24 IMPRESSION: No acute intracranial process identified. Electronically Signed: Marii Galvan MD ALLERGIES Allergen Reactions Augmentin [Amoxicil* Vomiting Bee Sting Swelling Lipitor [Atorvastat* severe muscle pain [place] Food Dye [Ot* Hives Current Outpatient Medications Medication Sig Dispense Refill TURMERIC ORAL Take 1,000 mg by mouth once daily. Multivitamin capsule Take 1 capsule by mouth once daily. ibuprofen (ADVIL) 200 mg ORAL Tab Take one(1) to two(2) tablets every two(2) hours as needed for pain. 0 No current facility-administered medications for this visit. ACTIVE PROBLEM LIST Hyperlipemia Herpes Zoster Mastodynia Abnormal Mammogram, Unspecified PAST MEDICAL HISTORY Diagnosis Date Diverticulosis of colon (without mention of hemorrhage) External hemorrhoids without mention of complication Hemorrhage of gastrointestinal tract, unspecified Hemorrhage of rectum and anus Internal hemorrhoids without mention of complication [place] Bill lesion 09/01/2018 Other malaise and fatigue Pure hypercholesterolemia PAST SURGICAL HISTORY Procedure Laterality Date COLONOSCOPY FLX DX W/COLLJ SPEC WHEN PFRMD 11/10/07 [facility]ERE[facility] LOC FOR CORE BRST BX RT 04-08-12 Social History Tobacco Use Smoking status: Never Smokeless tobacco: Never Substance Use Topics Alcohol use: No Drug use: No Family History Problem Relation Age of Onset Lipids Mother Lipids Brother Review of Systems Constitutional: Negative for chills, fatigue and fever. HENT: Negative for congestion, dental problem, ear pain, postnasal drip, rhinorrhea, sinus pressure, sinus pain, sneezing, sore throat, tinnitus and trouble swallowing. Respiratory: Negative for cough, shortness of breath and wheezing. Cardiovascular: Negative for chest pain, palpitations and leg swelling. Gastrointestinal: Negative for blood in stool, diarrhea, nausea and vomiting. Endocrine: Negative for cold intolerance, heat intolerance, polydipsia, polyphagia and polyuria. Neurological: Negative for dizziness, tremors, seizures, syncope, speech difficulty, light-headedness, numbness and headaches. Objective BP 122/78 (BP Site: Right Arm, BP Position: Sitting, BP Cuff Size: Regular Adult) Pulse 77 Temp 36.8 C (98.2 F) (Oral) Resp 18 Ht 172.7 cm (5' 8) Wt 89.3 kg (196 lb 12.8 oz) SpO2 97% BMI 29.92 kg/m Physical Exam Vitals and nursing note reviewed. HENT: Head: Normocephalic and atraumatic. Cardiovascular: Rate and Rhythm: Normal rate and regular rhythm. Pulses: Normal pulses. Heart sounds: Normal heart sounds. No murmur heard. Pulmonary: Effort: Pulmonary effort is normal. No respiratory distress. Breath sounds: Normal breath sounds. No wheezing, rhonchi or rales. Abdominal: Palpations: Abdomen is soft. Lymphadenopathy: Comments: No significant adenopathy, Tenderness superficial posterior cervical nodes Skin: General: Skin is warm and dry. Neurological: General: No focal deficit present. Mental Status: She is alert and oriented to person, place, and time. Psychiatric: Mood and Affect: Mood normal. Behavior: Behavior normal. Thought Content: Thought content normal. Judgment: Judgment normal. ASSESSMENT/PLAN: 1. Swelling of lymph node - ICD9: 785.6, ICD10: R59.9 (primary diagnosis) - acute, no obvious signs of infection. Pt reports taking antibiotic. There continues to be mild tenderness - instructed to monitor for 4-6 wks and call if persists or worsens 2. Encounter for medical examination to establish care - ICD9: V70.9, ICD10: Z00.00 - Counseled on healthy diet and regular exercise - Mammogram ordered - exam recommended once yearly - Bone mineral density- Declined - Counseled patient on limiting alcohol intake to 1 drink per day - Follow up for annual exam in one year 3. Screening for thyroid disorder - ICD9: V77.0, ICD10: Z13.29 - THYROID STIMULATING HORMONE 4. Screening for lipid disorders - ICD9: V77.91, ICD10: Z13.220 - LIPID PANEL BASIC 5. Vitamin D deficiency - ICD9: 268.9, ICD10: E55.9 - VITAMIN D 25 HYDROXY 6. Encounter for screening for diabetes mellitus - ICD9: V77.1, ICD10: Z13.1 - COMPREHENSIVE METABOLIC PANEL 7. Screening for deficiency anemia - ICD9: V78.1, ICD10: Z13.0 - COMPLETE BLOOD COUNT 8. Encounter for screening mammogram for breast cancer - ICD9: V76.12, ICD10: Z12.31 - SOTO SCREENING W DUSTIN 9. Special screening examination for viral disease - ICD9: V73.99, ICD10: Z11.59 - HEPATITIS C ANTIBODY IA WITH CONFIRMATION Александр Blanco APRN.TEMPLATE WORKER documented in this encounter [facility] 05-11-2024 Telephone encounter Note Called pt left VM for pt with information Maia Bell MA [facility] 05-11-2024 Miscellaneous Notes Called pt left VM for pt with information Maia Bell MA I can not order this since she is not a patient here at our practice. This will be done at office visit. This patient has been scheduled for a [facility] ER f/u on 05/19/24 at 11:20 am. She did ask for blood work to be ordered prior to the appointment. She understood that as a new patient, any appropriate blood work would be order at the time of her appointment. She did ask if you would anyway. Thank you. Ginny Awad documented in this encounter [facility] 05-11-2024 Telephone encounter Note I can not order this since she is not a patient here at our practice. This will be done at office visit. [facility] Work Phone: 05-11-2024 Telephone encounter Note This patient has been scheduled for a [facility] f/u on 05/19/24 at 11:20 am. She did ask for blood work to be ordered prior to the appointment. She understood that as a new patient, any appropriate blood work would be order at the time of her appointment. She did ask if you would anyway. Thank you. Ginny Awad [facility] 07-07-2023 Miscellaneous Notes Patient has not been seen by PCP team since 02/2019. She will need to schedule before this can be ordered. patient didn't want to schedule appt with pcp No recent visit. Appointment needed. Schedule wellness visit with PCP team. Patient called to request a mammogram order to be faxed to [facility]. Please notify the patient when order has been faxed so she can follow up with [facility] schedulers. documented in this encounter [facility] 11-23-2022 History of Present illness Narrative This note was created using Pufett[employer]. Subjective Keya Warren is a 66 year old female. HPI Patient presents with cough wheezing chest congestion over the past 10 or 11 days. She was seen on the and tested positive for influenza A. She was on Tamiflu already at that time. She has not had a recent fever in the past week. She states she still coughing and wheezing and was not getting better so came back in for evaluation. Denies history of asthma. She is not a smoker. She has tried mucinex otc. Review of Systems Constitutional: Negative. HENT: Positive for congestion and sore throat. Respiratory: Positive for cough, chest tightness and wheezing. Negative for shortness of breath. Cardiovascular: Negative. Gastrointestinal: Negative. Genitourinary: Negative. Musculoskeletal: Negative. All other systems reviewed and are negative. PAST MEDICAL HISTORY Diagnosis Date Diverticulosis of colon (without mention of hemorrhage) External hemorrhoids without mention of complication Hemorrhage of gastrointestinal tract, unspecified Hemorrhage of rectum and anus Internal hemorrhoids without mention of complication Iniguez Bill lesion 09/01/2018 Other malaise and fatigue Pure hypercholesterolemia Current Outpatient Medications Medication Sig Dispense Refill TURMERIC ORAL Take 1,000 mg by mouth once daily. ASPIRIN (ASPIR-81 ORAL) Take 2 tablets by mouth once daily. Multivitamin capsule Take 1 capsule by mouth once daily. ibuprofen (ADVIL) 200 mg ORAL Tab Take one(1) to two(2) tablets every two(2) hours as needed for pain. 0 doxycycline (VIBRA-TABS) 100 mg tablet Take 1 tablet by mouth twice daily for 7 days. 14 tablet 0 codeine-guaiFENesin (GUAIFENESIN AC) 10-100 mg/5 mL syrup Take 10 mL by mouth three times daily as needed for up to 5 days. 150 mL 0 albuterol HFA (PROAIR HFA) 90 mcg/actuation inhaler Inhale 2 Puffs as instructed every 6 hours as needed. 1 Each 0 No current facility-administered medications for this visit. PAST SURGICAL HISTORY Procedure Laterality Date COLONOSCOPY FLX DX W/COLLJ SPEC WHEN PFRMD 11/10/07 STEREO LOC FOR CORE BRST BX RT 04-08-12 FAMILY HISTORY Problem Relation Age of Onset Lipids Mother Lipids Sister Lipids Brother Social History Tobacco Use Smoking status: Never Smokeless tobacco: Never Substance Use Topics Alcohol use: No Drug use: No Objective BP 122/80 Pulse 84 Temp 36.8 C (98.3 F) (Tympanic) Resp 18 Wt 89.2 kg (196 lb 9.6 oz) SpO2 100% BMI 29.89 kg/m Physical Exam Vitals reviewed. Constitutional: Appearance: Normal appearance. HENT: Head: Normocephalic and atraumatic. Right Ear: Tympanic membrane, ear canal and external ear normal. Left Ear: Tympanic membrane, ear canal and external ear normal. Nose: Congestion present. Mouth/Throat: Mouth: Mucous membranes are moist. Pharynx: Oropharynx is clear. Cardiovascular: Rate and Rhythm: Normal rate and regular rhythm. Heart sounds: Normal heart sounds. Pulmonary: Effort: Pulmonary effort is normal. Breath sounds: Normal breath sounds. Musculoskeletal: Cervical back: Neck supple. Skin: General: Skin is warm and dry. Findings: No rash. Neurological: Mental Status: She is alert. Assessment and Plan ASSESSMENT/PLAN: 1. Bronchitis - ICD9: 490, ICD10: J40 Patient is concerned for pneumonia, however her pulse ox is 100% here and lungs clear. I do not have x-ray until 11/26/2022 due to the holiday. I will cover empirically with doxycycline. Also given Robitussin-AC. Tessalon has not worked for the patient in the past. Discussed if not improving to follow-up with PCP. May consider chest x-ray at that time. Agreeable - CODEINE 10 MG-GUAIFENESIN 100 MG/5 ML ORAL LIQUID Sharlene Drew PA-C documented in this encounter [facility] 11-12-2022 Instructions Jennifer Sharma APRN.[facility] - 11/12/2022 2:54 PM EST ASSESSMENT/PLAN: 1. Flu-like symptoms - ICD9: 780.99, ICD10: R68.89 (primary diagnosis) - continue taking Tamiflu - COVID WITH FLUA+B, ROUTINE 2. Suspected COVID-19 virus infection - ICD9: V01.79, ICD10: Z20.822 - COVID WITH FLUA+B, ROUTINE - Follow-up with your PCP in 3-5 days if symptoms have not improved or sooner if symptoms worsen - Discussed red flags and need for immediate medical evaluation if any occur. - Discussed supportive care treatment with fluids, rest and analgesia. - Discussed expected course of illness Jennifer Sharma APRN.[facility] CARE PATIENT INFO INFLUENZA INTRODUCTION Influenza (commonly called the flu) is a highly contagious illness that can occur in children or adults of any age. It occurs more often in the winter months because people spend more time in close contact with one another. The flu is spread easily from plfqvp-qv-tlyozb by coughing, sneezing, or touching surfaces. Every year, complications of the flu require more than 200,000 people in the [place] to be hospitalized. Serious illness is more likely in the very young, older adults, women, and people who have certain health problems such as asthma or other forms of lung disease. There have been several widespread flu outbreaks (called pandemics), which led to the deaths of many people worldwide. These outbreaks occurred when new strains of influenza viruses formed (often from pigs or birds) and humans became infected because they had no immunity to these viruses. FLU SYMPTOMS Symptoms of seasonal flu can vary from person to person, but usually include: Fever (temperature higher than 100 F or 37.8 C) Headache and muscle aches Fatigue Cough and sore throat may also be present People with the flu usually have a fever for two to five days. This is different than fever caused by other upper respiratory viruses, which usually resolve after 24 to 48 hours. Some people have cold-like symptoms (runny nose, sore throat) during the flu while others have fever and muscle aches. Flu symptoms usually improve over two to five days, although the illness may last for a week or more. Weakness and fatigue may persist for several weeks Flu complications -- Complications of influenza occur in some people; pneumonia is the most common complication. Pneumonia is a serious infection of the lungs, and is more likely to occur in people over the age of 65, people who live in skilled nursing care facilities (nursing homes), and those with other illnesses such as diabetes or conditions affecting the heart or lungs. FLU DIAGNOSIS Influenza is usually diagnosed based on symptoms (fever, cough and muscle aches). Lab testing for influenza is performed in certain cases, such as during a new influenza outbreak in a community. FLU TREATMENT When to seek help -- Most people with the flu recover within one to two weeks without treatment. However, serious complications of the flu can occur. Call your doctor or nurse immediately if: You feel short of breath or have trouble breathing You have pain or pressure in your chest or stomach You have signs of being dehydrated, such as dizziness when standing or not passing urine You feel confused You cannot stop vomiting or you cannot drink enough fluids There are several groups of people who are at increased risk for flu complications. These include women, young children (<5 years of age, and especially <2 years of age), people ?65 years of age, and people with certain diseases such as chronic lung disease (such as asthma), heart disease, diabetes, immunosuppressing conditions (such as HIV infection or transplantation), and some other diseases. If you or your child has flu symptoms and is at increased risk of flu complications, you should call your healthcare provider. Treat symptoms -- Treating the symptoms of influenza can help you to feel better, but will not make the flu go away faster. Rest until the flu is fully resolved, especially if the illness has been severe Fluids -- Drink enough fluids so that you do not become dehydrated. One way to software tester if you are drinking enough is to look at the color of your urine. Normally, urine should be light yellow to nearly colorless. If you are drinking enough, you should pass urine every three to five hours. Acetaminophen (such as Tylenol and other brands) can relieve fever, headache, and muscle aches. Aspirin, and medicines that include aspirin (eg, bismuth subsalicylate; PeptoBismol), are not recommended for children under 18 because aspirin can lead to a serious disease called Fernie syndrome. Cough medicines are not usually helpful; cough usually resolves without treatment. We do not recommend cough or cold medicine for children under age six years. Antiviral treatment -- Antiviral medicines can be used to treat or prevent influenza. When used as a treatment, the medicine does not eliminate flu symptoms, although it can reduce the severity and duration of symptoms by about one day. Not every person with influenza needs an antiviral medicine; the decision is based upon your risk of developing complications of influenza. Antiviral treatment is most effective for seasonal influenza when it is taken within the first 48 hours of flu symptoms. Side effects -- Zanamivir and oseltamivir can cause mild side effects, including nausea and vomiting; zanamivir, which is inhaled, can cause difficulty breathing in some cases. Most people are able to continue the medicine despite the side effects. Antibiotics -- Antibiotics are NOT useful for treating viral illnesses such as influenza. Antibiotics should only used if there is a bacterial complication of the flu such as bacterial pneumonia, ear infection, or sinusitis. Antibiotics can cause side effects and lead to development of antibiotic resistance. documented in this encounter [facility] 11-12-2022 History of Present illness Narrative Subjective HPI Keya Warren is a 66 year old female who presents with flu like symptoms that started last night. She states she is enrolled in a study and the study question is Are people smart enough to take Tamiflu if they think they have the flu. She apparently had a supply of Tamiflu at home due to being in this study, and last night when she started getting symptoms she started the medication. She did not get a flu shot. She notes the following symptoms: chest congestion, cough, body aches, joint pain, fever at home of 101.9 degrees F. She denies any known sick contacts. She has not taken any other medications for her symptoms. She would like a test today to verify if she does indeed have the flu. Review of Systems Constitutional: Positive for fever and malaise/fatigue. HENT: Negative. Respiratory: Positive for cough. Negative for shortness of breath and wheezing. Cardiovascular: Negative. Gastrointestinal: Negative for diarrhea, nausea and vomiting. Musculoskeletal: Positive for myalgias. BP 168/92 Pulse 98 Temp 37.2 C (98.9 F) Resp 16 Wt 89.4 kg (197 lb) SpO2 96% BMI 29.95 kg/m PAST MEDICAL HISTORY Diagnosis Date Diverticulosis of colon (without mention of hemorrhage) External hemorrhoids without mention of complication Hemorrhage of gastrointestinal tract, unspecified Hemorrhage of rectum and anus Internal hemorrhoids without mention of complication Iniguez Bill lesion 09/01/2018 Other malaise and fatigue Pure hypercholesterolemia PAST SURGICAL HISTORY Procedure Laterality Date COLONOSCOPY FLX DX W/COLLJ SPEC WHEN PFRMD 11/10/07 STEREO LOC FOR CORE BRST BX RT 04-08-12 ALLERGIES Augmentin [Amoxicillin-Pot Clavulanate], Bee Sting, Lipitor [Atorvastatin Calcium], and [place] Food Dye [Other] MEDICATIONS TURMERIC ORAL Take 1,000 mg by mouth once daily. ASPIRIN (ASPIR-81 ORAL) Take 2 tablets by mouth once daily. Multivitamin capsule Take 1 capsule by mouth once daily. ibuprofen (ADVIL) 200 mg ORAL Tab Take one(1) to two(2) tablets every two(2) hours as needed for pain. FAMILY HISTORY Problem Relation Age of Onset Lipids Mother Lipids Sister Lipids Brother Social History Tobacco Use Smoking status: Never Smokeless tobacco: Never Substance Use Topics Alcohol use: No Drug use: No Objective Physical Exam Vitals and nursing note reviewed. Constitutional: General: She is not in acute distress. Appearance: Normal appearance. She is ill-appearing. She is not toxic-appearing. HENT: Right Ear: Tympanic membrane, ear canal and external ear normal. Left Ear: Tympanic membrane, ear canal and external ear normal. Nose: Nose normal. Mouth/Throat: Mouth: Mucous membranes are moist. Pharynx: Uvula midline. No oropharyngeal exudate or posterior oropharyngeal erythema. Cardiovascular: Rate and Rhythm: Normal rate and regular rhythm. Heart sounds: Normal heart sounds. Pulmonary: Effort: Pulmonary effort is normal. No respiratory distress. Breath sounds: Normal breath sounds. No wheezing or rales. Musculoskeletal: Cervical back: Neck supple. Lymphadenopathy: Cervical: No cervical adenopathy. Skin: General: Skin is warm and dry. Findings: No erythema or rash. Neurological: Mental Status: She is alert. ASSESSMENT/PLAN: 1. Flu-like symptoms - ICD9: 780.99, ICD10: R68.89 (primary diagnosis) - continue taking Tamiflu - COVID WITH FLUA+B, ROUTINE 2. Suspected COVID-19 virus infection - ICD9: V01.79, ICD10: Z20.822 - COVID WITH FLUA+B, ROUTINE - Follow-up with your PCP in 3-5 days if symptoms have not improved or sooner if symptoms worsen - Discussed red flags and need for immediate medical evaluation if any occur. - Discussed supportive care treatment with fluids, rest and analgesia. - Discussed expected course of illness Jennifer Sharma APRN.TEMPLATE WORKER documented in this encounter [facility] Evaluation note No assessment inform ation available [facility] Work Phone: Evaluation note Diagnosis Flu-like symptoms- Primary Other general symptoms Suspected COVID-19 virus infection [facility] Diagnosis Bronchitis- Primary Bronchitis, not specified as acute or chronic [facility] Diagnosis Encounter for screening mammogram for malignant neoplasm of breast- Primary Other screening [facility]ogram [facility] Diagnosis Swelling of lymph node- Primary Enlargement of lymph nodes Encounter for medical examination to establish care Screening for thyroid disorder Screening for lipid disorders Vitamin D deficiency Unspecified vitamin D deficiency Encounter for screening for diabetes mellitus Screening for diabetes mellitus Screening for deficiency anemia Screening for other and unspecified deficiency anemia Encounter for screening mammogram for breast cancer Special screening examination for viral disease Special screening examination for unspecified viral disease documented in this encounter [facility] note* Diagnosis Elevated serum creatinine- Primary Other nonspecific findings on examination of blood [facility] Diagnosis Elevated blood sugar- Primary Other abnormal glucose documented in this encounter [facility] note* Diagnosis Colon cancer screening- Primary Special screening for malignant neoplasms, colon [facility] Diagnosis Colon cancer screening- Primary Special screening for malignant neoplasms, colon documented in this encounter [facility] note* Diagnosis Encounter for screening mammogram for breast cancer documented in this encounter [facility] for referral (narrative)* Diagnostic Procedure Only (Routine) - Pending Review Specialty Diagnoses / Procedures Referred By Contac t Referred To Contact [facility] Diagnoses Encounter for screening mammogram for breast cancer Procedures SOTO SCREENING W DUSTIN SCREENING DIGITAL BREAST TOMOSYNTHESIS BI SCREENING MAMMOGRAPHY BI 2-VIEW BREAST INC Александр Dumont APRN.TEMPLATE WORKER [address] [place] [address] [facility] [address] [place] [address] Referral ID Status Reason Start Date Expiration Date Visits Requested Visits Authorized [id number] Pending Review Auto-Generat ed Referral 05/19/2024 06/18/2025 1 1 [facility] Chief Complaint and Reason for Visit Chief Complaint SCREENING right shoulder pain Chief Complaint SCREENING right shoulder pain sprain right shoulder Family History No Family History Records Found Relationship Condition Age at Onset Recorded Date/T rosalio Not Specified Cardiac disease Unknown brother Diabetes mellitus Unknown mother Malignant neoplasm Unknown Advance Directives No Advanced Directives Records Found Advance Directive Response Recorded Date/ Time Name of Medical Power of Rubber Goods Tester tracee coleman July 11, 2022 12:12pm Living Will Yes July 11 12:12pm Power of Rubber Goods Tester Yes July 11 022 12:12pm Health Concerns Infection Onset Date Last Indicated Resolved Time COVID-19 Rule-Out 11/12/2022 11/12/2022 Summary Purpose Additional Source Comments Goals (unrecognized section and content) Goals may be documented in a n alternate sectionGoals may be documented in an alternate sectionGoals may be documented in an alternate sectionGoals may be documented in an alternate sectionGoals may be documented in an alternate section Source Comments (unrecognize d section and content) In the event this informatio n is protected by the Federal Confidentiality of Alcohol and Drug Abuse Patient Records regulations: The Federal rules restrict any use of the information to criminally investigate or prosecute any alcohol or drug abuse patient.[facility] event this information is protected by the Federal Confidentiality of Alcohol and Drug Abuse Patient Records regulations: The Federal rules restrict any use of the information to criminally investigate or prosecute any alcohol or drug abuse patient.[facility] the event this information is protected by the Federal Confidentiality of Alcohol and Drug Abuse Patient Records regulations: The Federal rules restrict any use of the information to criminally investigate or prosecute any alcohol or drug abuse patient.[facility] the event this information is protected by the Federal Confidentiality of Alcohol and Drug Abuse Patient Records regulations: The Federal rules restrict any use of the information to criminally investigate or prosecute any alcohol or drug abuse patient.[facility] the event this information is protected by the Federal Confidentiality of Alcohol and Drug Abuse Patient Records regulations: The Federal rules restrict any use of the information to criminally investigate or prosecute any alcohol or drug abuse patient.[facility] the event this information is protected by the Federal Confidentiality of Alcohol and Drug Abuse Patient Records regulations: The Federal rules restrict any use of the information to criminally investigate or prosecute any alcohol or drug abuse patient.[facility] the event this information is protected by the Federal Confidentiality of Alcohol and Drug Abuse Patient Records regulations: The Federal rules restrict any use of the information to criminally investigate or prosecute any alcohol or drug abuse patient.[facility] the event this information is protected by the Federal Confidentiality of Alcohol and Drug Abuse Patient Records regulations: The Federal rules restrict any use of the information to criminally investigate or prosecute any alcohol or drug abuse patient.[facility] the event this information is protected by the Federal Confidentiality of Alcohol and Drug Abuse Patient Records regulations: The Federal rules restrict any use of the information to criminally investigate or prosecute any alcohol or drug abuse patient.[facility] the event this information is protected by the Federal Confidentiality of Alcohol and Drug Abuse Patient Records regulations: The Federal rules restrict any use of the information to criminally investigate or prosecute any alcohol or drug abuse patient.[facility] the event this information is protected by the Federal Confidentiality of Alcohol and Drug Abuse Patient Records regulations: The Federal rules restrict any use of the information to criminally investigate or prosecute any alcohol or drug abuse patient.[facility] the event this information is protected by the Federal Confidentiality of Alcohol and Drug Abuse Patient Records regulations: The Federal rules restrict any use of the information to criminally investigate or prosecute any alcohol or drug abuse patient.[facility] the event this information is protected by the Federal Confidentiality of Alcohol and Drug Abuse Patient Records regulations: The Federal rules restrict any use of the information to criminally investigate or prosecute any alcohol or drug abuse patient.[facility] the event this information is protected by the Federal Confidentiality of Alcohol and Drug Abuse Patient Records regulations: The Federal rules restrict any use of the information to criminally investigate or prosecute any alcohol or drug abuse patient.[facility] the event this information is protected by the Federal Confidentiality of Alcohol and Drug Abuse Patient Records regulations: The Federal rules restrict any use of the information to criminally investigate or prosecute any alcohol or drug abuse patient.[facility] the event this information is protected by the Federal Confidentiality of Alcohol and Drug Abuse Patient Records regulations: The Federal rules restrict any use of the information to criminally investigate or prosecute any alcohol or drug abuse patient.[facility] the event this information is protected by the Federal Confidentiality of Alcohol and Drug Abuse Patient Records regulations: The Federal rules restrict any use of the information to criminally investigate or prosecute any alcohol or drug abuse patient.[facility] Reason for Visit (unrecogniz ed section and content) Reason Comments Chest Congestion cough, bodyaches, fe chantell x 1 day, on tamiflu Reason Comments Cough Cough and congestion and ST-had Flu A 2 weeks ago Reason Comments Orders Mammogram Return Call Request Reason Comments Lab Orders The new patient requ ested blood work prior to her first appointment. Reason Comments Results Mammogram Reason Comments Orders Reason Comments Results Reason Onset Date Comments Population Health Navigation Outreach 08/09/2024 Cologuard Rescreens Reason Comments Orders Cologuard Reason Comments Orders Tita from [facility] ca lled and needed SOTO Screening order. Faxed order to [phone] at 3:01 pm 05/13/25. Care Teams (unrecognized sec tion and content) Call Out Operator Relationship Specialty Start Date End Date Marsha Laird MD [address] [place] [address] PCP - General Internal Medicine 05/25/18 Call Out Operator Relationship Specialty Start Date End Date Marsha Laird MD [address] [place], [place] [id number] PCP - General Internal Medicine 05/25/18 07/06/23 Call Out Operator Relationship Specialty Start Date End Date Александр Blanco, CRITICAL CARE SPECIALIST.TEMPLATE WORKER [address] [place] [address] PCP - General Internal Medicine 05/19/24 Call Out Operator Relationship Specialty Start Date End Date Александр Blanco, CRITICAL CARE SPECIALIST.TEMPLATE [place]ER [address] [place] [address] PCP - General Internal Medicine 05/19/24 Call Out Operator Relationship Specialty Start Date End Date Александр Blanco, CRITICAL CARE SPECIALIST.TEMPLATE WORKER [address] [place] [address] PCP - General Internal Medicine 05/19/24 Call Out Operator Relationship Specialty Start Date End Date Александр Blanco, CRITICAL CARE SPECIALIST.TEMPLATE WORKER [address] [place] [address] PCP - General Internal Medicine 05/19/24 Call Out Operator Relationship Specialty Start Date End Date Александр Blanco, CRITICAL CARE SPECIALIST.TEMPLATE WORKER [address] [place] [address] PCP - General Internal Medicine 05/19/24 Call Out Operator Relationship Specialty Start Date End Date Александр Blanco, CRITICAL CARE SPECIALIST.TEMPLATE WORKER [address] [place] [address] PCP - General Internal Medicine 05/19/24 Call Out Operator Relationship Specialty Start Date End Date Александр Blanco, CRITICAL CARE SPECIALIST.TEMPLATE WORKER [address] [place] [address] PCP - General Internal Medicine 05/19/24 Call Out Operator Relationship Specialty Start Date End Date Александр Blanco APRN.TEMPLATE WORKER [address] [place] [address] PCP - General Internal Medicine 05/19/24 Call Out Operator Relationship Specialty Start Date End Date Александр Blanco APRN.TEMPLATE WORKER [address] [place] [address] PCP - General Internal Medicine 05/19/24 INFORMATION SOURCE (unrecogn ized section and content) DATE CREATED AUTHOR 05/18/2025 [facility] DATE CREATED AUTHOR AUTHOR'S ORGANIZ ATION 05/20/2025 [facility] DATE CREATED AUTHOR AUTHOR'S ORGANIZ ATION 05/21/2025 [facility] FOR RECORDS PERTAINING TO PATIENTS WHO ARE OR HAVE BEEN ENROLLED IN A CHEMICAL DEPENDENCY/SUBSTANCEABUSE PROGRAM, SOME INFORMATION MAY BE OMITTED. This clinical summary was aggregated from multiple sources. Caution should be exercised in using it in the provision of clinical care. This summary normalizes information from multiple sources, and as a consequence, information in this document may materially change the coding, format and clinical context of patient data. In addition, data may be omitted in some cases. CLINICAL DECISIONS SHOULD BE BASED ON THE PRIMARY CLINICAL RECORDS. [facility]. provides no warranty or guarantee of the accuracy or completeness of information in this document.
== END | disposition home or self-care (01) ==
LOC: OPBI 15:02
PROVIDERS: PCP Nurse Practitioner Adult Health; Referring Provider Nurse Practitioner Adult Health; Visit Provider Nurse Practitioner Adult Health
DX: Z12.31 Encounter for screening mammogram for malignant neoplasm of breast (principal)
CPT/HCPCS: 77063; 77067